=== PATIENT | male | born 1960 | race Caucasian/White ===

== ENCOUNTER 2019-12-27 14:42 | Outpatient (CLI) | payer BC, SELFPAY ==
--- NOTE | ~2019-12-27 | XR_ITS ---
XR chest 2V 12/27/2019 14:56 Indication: Weakness and shortness of breath. Procedure: 2 view chest Comparison: No prior studies for comparison. Findings: The there is a focal infiltrate of the left upper lung. Heart size normal. No edema, pleura l effusion or pneumothorax. Scattered calcified granulomas. Impression: 1: Focal infiltrate left upper lung which may represent atelectasis/scarring or developing pneumonia. Reviewed, dictated and finalized at location A. Impression: 1: Focal infiltrate left upper lung which may represent atelectasis/scarring or developing pneumonia.
[2019-12-27 15:34] LABS: Basophils Absolute Auto 0.1 K/mm3 (0.0-0.1); Basophils Percent Auto 0.6 % (0.2-1.2); Eosinophils Absolute Auto 0.2 K/mm3 (0-0.3); Eosinophils Percent Auto 2.3 % (0-4.4); Hematocrit 46.5 % (42.0-52.0); Hemoglobin 15.9 g/dL (14.0-18.0); Immature Granulocyte Absolute 0.04 K/mm3 (0.00-0.031); Immature Granulocyte Percent A 0.5 % (0-0.5); Lymphocytes Absolute Auto 2.09 K/mm3 (0.9-3.2); Lymphocytes Percent Auto 24.1 % (18.3-44.2); Mean Corpuscular HGB Conc 34.2 g/dl (32-36); Mean Corpuscular Hemoglobin 30.3 pg (26-34); Mean Corpuscular Volume 88.7 fl (80-100); Mean Platelet Volume 11.4 fl (7.4-10.4); Monocytes Absolute Auto 0.5 K/mm3 (0.1-0.6); Monocytes Percent Auto 5.4 % (2.6-8.5); Neutrophils Absolute Auto 5.8 K/mm3 (1.3-6.7); Neutrophils Percent Auto 67.1 % (45.5-73.1); Platelet Count Result 194 k/mm3 (150-375); Red Blood Count 5.24 M/mm3 (4.6-6.20); Red Cell Distribution Width 13.2 % (11.5-14.5); White Blood Count 8.7 K/mm3 (4.5-10.0)
[2019-12-27 15:45] LABS: Alanine Aminotransferase 45 U/L (4-50); Albumin Level 4.7 g/dL (3.5-5.1); Alkaline Phosphatase 76 U/L (38-126); Aspartate Amino Transferase 39 U/L (17-59); Bilirubin,Total 0.6 mg/dL (0.2-1.3); Blood Urea Nitrogen 13 mg/dL (9-20); Calcium 9.7 mg/dL (8.4-10.2); Carbon Dioxide 27 mmol/L (22-30); Chloride 102 mmol/L (98-107); Estimated Glomerular Filt Rate 56; Glucose 98 mg/dL (75-110); Potassium 4.3 mmol/L (3.4-5.0); Sodium 138 mmol/L (137-145)
[2019-12-27 16:11] LABS: Erythrocyte Sedimentation Rate 1 mm/hr (0-20)
[2019-12-30 14:22] LABS: Reference Lab Test Result Positive
== END 2019-12-27 14:43 | disposition home or self-care (01) ==
PROVIDERS: PCP Family Medicine; Visit Provider Family Medicine
DX: R53.1 Weakness (principal); R06.02 Shortness of breath; R91.8 Other nonspecific abnormal finding of lung field
CPT/HCPCS: 36415; 71046; 80053; 85025; 85652; 86769

== ENCOUNTER 2020-01-03 14:54 | Outpatient (CLI) | payer BC, SELFPAY | END 2020-01-03 14:55 | disposition home or self-care (01) | PROVIDERS: PCP Family Medicine; Visit Provider Internal Medicine Cardiovascular Disease | DX: I48.91 Unspecified atrial fibrillation (principal) | CPT/HCPCS: 93225; 93226 ==

== ENCOUNTER 2020-02-05 08:31 | Outpatient (CLI) | payer BC, SELFPAY ==
--- NOTE | 2020-02-05 08:49 | EST_ITS ---
Patient Info Name: Jigar Law Age: 59 years : 1960 Gender: Male Ht: 72 in Wt: 212 lbs BSA: 2.23 m2 Exam Date: 02/05/2020 10:47 AM Exam Location: [facility] Stress Patient Status: Outpatient Admit Date: 02/05/2020 Staff Ordering Physician: Partha Sosa DO Attending Provider: Partha Sosa DO Exercise Technologist: Mitchell Hurtado RDCS, RT Exercise Physician: Partha Sosa DO Exam Type: CA stress test treadmill Study Info An exercise stress test was performed. Summary 1. 1. Negative Manny exercise stress test for ischemic ST changes by ECG criteria. 2. 2. Good functional capacity, achieving 12 METs of workload. 3. 3. Baseline hypertension. 4. 4. Appropriate HR response to exercise. 5. 5. Appropriate HR recovery at 1 minute post exercise. 6. 6. No imaging with stress testing. 7. 7. Patient informed of the above results. Protocol: Manny Stress ECG Details Stage: REST Duration (min): 0 min : 56 sec Speed (mph): 0.0 Grade (%): 0 HR (bpm): 61 SBP (mmHg): 144 DBP (mmHg): 92 METS: --- Stage: REST Duration (min): 6 min : 21 sec Speed (mph): 0.0 Grade (%): 0 HR (bpm): 64 SBP (mmHg): 144 DBP (mmHg): 92 METS: --- Stage: STAGE 1 Duration (min): 1 min : 0 sec Speed (mph): 1.7 Grade (%): 10 HR (bpm): 82 SBP (mmHg): 144 DBP (mmHg): 92 METS: --- Stage: STAGE 1 Duration (min): 2 min : 0 sec Speed (mph): 1.7 Grade (%): 10 HR (bpm): 85 SBP (mmHg): 144 DBP (mmHg): 92 METS: --- Stage: STAGE 1 Duration (min): 3 min : 0 sec Speed (mph): 1.7 Grade (%): 10 HR (bpm): 88 SBP (mmHg): 175 DBP (mmHg): 96 METS: --- Stage: STAGE 2 Duration (min): 1 min : 0 sec Speed (mph): 2.5 Grade (%): 12 HR (bpm): 95 SBP (mmHg): 175 DBP (mmHg): 96 METS: --- Stage: STAGE 2 Duration (min): 2 min : 0 sec Speed (mph): 2.5 Grade (%): 12 HR (bpm): 97 SBP (mmHg): 174 DBP (mmHg): 97 METS: --- Stage: STAGE 2 Duration (min): 3 min : 0 sec Speed (mph): 2.5 Grade (%): 12 HR (bpm): 101 SBP (mmHg): 174 DBP (mmHg): 97 METS: --- Stage: STAGE 3 Duration (min): 1 min : 0 sec Speed (mph): 3.4 Grade (%): 14 HR (bpm): 108 SBP (mmHg): 186 DBP (mmHg): 96 METS: --- Stage: STAGE 3 Duration (min): 2 min : 0 sec Speed (mph): 3.4 Grade (%): 14 HR (bpm): 115 SBP (mmHg): 186 DBP (mmHg): 96 METS: --- Stage: STAGE 3 Duration (min): 3 min : 0 sec Speed (mph): 3.4 Grade (%): 14 HR (bpm): 120 SBP (mmHg): 189 DBP (mmHg): 86 METS: --- Stage: STAGE 4 Duration (min): 1 min : 0 sec Speed (mph): 4.2 Grade (%): 16 HR (bpm): 141 SBP (mmHg): 189 DBP (mmHg): 86 METS: --- Stage: STAGE 4 Duration (min): 1 min : 7 sec Speed (mph): 4.2 Grade (%): 16 HR (
--- NOTE | 2020-02-05 08:49 | ECHO_ITS ---
Patient Info Name: Jigar Law Age: 59 years : 1960 Gender: Male Ht: 72 in Wt: 212 lbs BSA: 2.23 m2 HR: 59 bpm BP: 138 / 85 mmHg Technical Quality: Good Exam Date: 02/05/2020 9:09 AM Exam Location: [facility] Patient Status: Outpatient Admit Date: 02/05/2020 Staff Ordering Physician: Partha Sosa DO Director Ship: Mae Torres RDCS Attending Provider: Partha Sosa DO Referring Physician: Ian RICHEY; Exam Type: CA echo doppler color flow Study Info Indications - hx/o afib sob Complete two-dimensional, color flow and Doppler transthoracic echocardiogram is performed. Summary 1. Left ventricular chamber dimension is normal. 2. Ventricular septum is sigmoid shaped. No LVOT obstruction. 3. Left ventricular systolic function is normal, estimated at 65-70%. 4. The left ventricular diastolic function is grade II diastolic dysfunction. 5. E/e' 10 is mildly elevated. 6. Left atrial chamber dimension is mild-moderately enlarged. 7. Moderate systolic anterior motion of mitral valve leaflets. 8. There is trace mitral valve regurgitation. 9. There is mild tricuspid valve regurgitation. 10. No pulmonary hypertension, estimated pulmonary arterial systolic pressure is 25 mmHg. 11. There is trace pulmonic regurgitation. Left Ventricle E/e' 10 is mildly elevated. Ventricular septum is sigmoid shaped. No LVOT obstruction. Left ventricular chamber dimension is normal. Left ventricular systolic function is normal, estimated at 65-70%. The left ventricular diastolic function is grade II diastolic dysfunction. Right Ventricle Right ventricular chamber dimension is normal. Right ventricular systolic function is normal. Left Atria Left atrial chamber dimension is mild-moderately enlarged. Right Atria Right atrial chamber dimension is normal. Aortic Valve The aortic valve is trileaflet. There is no aortic valve stenosis. There is no aortic valve regurgitation. Pulmonic Valve There is trace pulmonic regurgitation. Mitral Valve Moderate systolic anterior motion of mitral valve leaflets. There is no mitral valve stenosis. There is trace mitral valve regurgitation. Tricuspid Valve There is mild tricuspid valve regurgitation. No pulmonary hypertension, estimated pulmonary arterial systolic pressure is 25 mmHg. Pericardium/Pleural There is no pericardial effusion. Inferior Vena Cava Normal inferior vena cava with >50% collapse upon inspiration consistent with normal right atrial pressure, 5 mmHg. Aorta The aortic root size at the sinus of Valsalva is normal. Left Ventricular Outflow Tract Name Value Normal LVOT 2D LVOT Diameter 2.1 cm LVOT Doppler LVOT Peak Gradient 6 mmHg LVOT Mean Gradient 4 mmHg LVOT VTI 28 cm LVOT VTI/AV VTI Ratio 0.8 LVOT Stroke Volume 93 ml LVOT CO 19.2 l/min LVOT CI 8.6 l/min/m2 Pulmonic Valve
== END 2020-02-05 08:32 | disposition home or self-care (01) ==
LOC: ANHCARD 08:32
PROVIDERS: PCP Family Medicine; Visit Provider Internal Medicine Cardiovascular Disease
DX: R06.02 Shortness of breath (principal); I10 Essential (primary) hypertension; I34.0 Nonrheumatic mitral (valve) insufficiency; I36.1 Nonrheumatic tricuspid (valve) insufficiency
CPT/HCPCS: 93017; 93306

== ENCOUNTER 2020-03-12 16:27 | Outpatient (CLI) | payer BC, SELFPAY ==
--- NOTE | ~2020-03-12 | XR_ITS ---
EXAMINATION: XR chest 2V DATE: 03/12/2020 16:47 INDICATION: Shortness of breath. Cough. TECHNIQUE: Frontal and lateral views of the chest were obtained. COMPARISON: Chest 2 views 12/27/2019, CT abdomen and pelvis 10/04/2018 FINDINGS: There is mild atelectasis in the lower lung zones. Calcified pulmonary nodules are consiste nt with old granulomatous disease. No pleural effusion or pneumothorax. The heart size is normal. IMPRESSION: 1. Mild atelectasis in the lower lung zones. Reviewed, dictated and finalized at location A.
== END 2020-03-12 16:28 | disposition home or self-care (01) ==
PROVIDERS: PCP Family Medicine; Visit Provider Family Medicine
DX: R06.02 Shortness of breath (principal); R91.8 Other nonspecific abnormal finding of lung field
CPT/HCPCS: 71046

== ENCOUNTER 2020-03-27 09:40 | Outpatient (CLI) | payer BC, SELFPAY ==
--- NOTE | 2020-03-31 07:08 | SLEEP_ITS ---
Home Sleep Test DATE OF STUDY: 03/27/2020 ORDERING PHYSICIAN: Partha Sosa D.O. REASON FOR THIS STUDY: Hypersomnolence. HISTORY: The patient is a 59-year-old man, 6 feet tall, 212 pounds with a body mass index of 28.7. He has complaints of fragmented sleep, palpitations during sleep and falling asleep during the daytime. This has been going on for several years. He has difficulty falling asleep and he wakes up several times during the night. He has tried anxiety medications. He frequently wakes up feeling short of breath, frequently wakes up with heartburn, belching or coughing. He occasionally wakes up snoring, rarely is snoring loud enough that others complain about it. He occasionally has trouble sleeping with a cold, occasionally gasps for breath at night, but has not been told by others that he has apnea. He occasionally sweats excessively at night. He frequently notices his heart pounding or beating irregularly at night. He frequently falls asleep during the day, never involuntarily, never while driving, never during physical effort and never has loss of muscle tone with strong emotion. He rarely has daytime difficulties due to excessive sleepiness. He does not feel paralyzed on waking or falling asleep. He rarely has vivid dreamlike scenes upon awakening or falling asleep. He is rarely afraid to go to sleep. He rarely has nightmares. He frequently remembers his dreams. He occasionally has racing thoughts, rarely feels sad or depressed. He frequently has anxiety. He occasionally has muscular tension. He rarely notices parts of his body jerking and he rarely kicks at night. He does not have crawly achy feelings in the legs and does not have leg pain at night. He does not have morning jaw pain or grind his teeth at night. He is not bothered by pain during the day or wakened by pain at night. He does not have stiffness in the morning with sore achy muscles or neck pain. He has palpitations, memory problems, insomnia, panic, fatigue, takes antacids regularly, goes to bed at 10:00 p.m., taking 45 minutes to fall asleep, waking 4 times at night for 10 minutes to go to the bathroom and will try to go back to sleep. He has a meditation NESTOR that he uses. He wakes in the morning at 05:00 a.m. He does watch TV before falling asleep. He takes naps. A short nap may be refreshing. He is usually drowsy in the morning for an hour or longer. He feels better in the morning than other times a day. MEDICAL COMORBIDITIES: Atrial fibrillation, anxiety, GERD, hypertension, seasonal allergies. MEDICATIONS: 1. Buspirone 15 mg b.i.d. 2. Benicar 40 mg a day. 3. Clonazepam 1 mg b.i.d. 4. Nexium 20 mg a day. 5. Zoloft 50 mg a day. HABITS: Never smoked tobacco. Caffeine, 2 beverages a day. Alcohol 5 per week. No recreational drugs. DESCRIPTION OF THE STUDY: On the [place] Sleepiness Scale, the score is 9. This was conducted as an unattended type 3 portable home sleep test with 4 channel monitoring including respiratory effort channel, snoring channel, oxygen saturation channel, and heart rate channel. This study was scored using [facility] guidelines. Duration was 8 hours 31 minutes. The apnea-hypopnea index was 2.3. Oxygen desaturation index is 1.1. The patient had 12 apneas. Seven apneas or 58% were obstructive, 5 apneas or 42% were centrals. He had 8 hypopneas, 9 snoring events and no time was spent below 88%. He did desaturate 9 times. Lowest saturation was 88%. Heart rate ranged between 48 and 104. IMPRESSION: 1. This home sleep test does not show evidence of significant sleep-disordered breathing. The patient's apnea-hypopnea index is 2.3. He did have spikes in heart rate during the night that suggest adrenergic stimulation. Frequently
== END 2020-03-27 09:41 | disposition home or self-care (01) ==
LOC: ANHCSM 09:41
PROVIDERS: PCP Family Medicine; Visit Provider Internal Medicine Cardiovascular Disease
DX: G47.10 Hypersomnia, unspecified (principal); Z68.28 Body mass index [BMI] 28.0-28.9, adult
CPT/HCPCS: 95806

== ENCOUNTER 2020-09-02 06:54 | Outpatient (NON) | payer BC, SELFPAY ==
[2020-09-02 17:42] LABS: SARS-CoV-2 RNA PCR Negative
== END 2020-09-02 06:55 ==
LOC: ANHCOVIDDT 06:54
PROVIDERS: PCP Family Medicine; Visit Provider Physician Assistant
DX: R05 Cough (principal); Z20.822 Contact with and (suspected) exposure to COVID-19
CPT/HCPCS: C9803; U0003

== ENCOUNTER → 2020-10-19 12:38 | Outpatient (CLI) | payer BC, SELFPAY ==
--- NOTE | ~2020-10-19 | XR_ITS ---
EXAMINATION: XR chest 2V DATE: 10/19/2020 13:05 INDICATION: Unspecified acute lower respiratory infection. TECHNIQUE: Frontal and lateral views of the chest were obtained. COMPARISON: Chest 2 views 03/12/2020, CT abdomen and pelvis 10/04/2018 FINDINGS: Calcified pulmonary nodules are consistent with old granulomatous disease. No pleural effus ion or pneumothorax. The heart size is normal. IMPRESSION: 1. No acute cardiopulmonary disease. Reviewed, dictated and finalized at location A. COMMUNICATIONS ENGINEER
== END ==
PROVIDERS: PCP Family Medicine; Visit Provider Physician Assistant
DX: J22 Unspecified acute lower respiratory infection (principal)
CPT/HCPCS: 71046

== ENCOUNTER → 2020-10-22 11:53 | Outpatient (CLI) | payer BC, SELFPAY ==
[2020-10-23 22:51] LABS: SARS-CoV-2 RNA PCR Negative
== END ==
PROVIDERS: PCP Family Medicine; Visit Provider Physician Assistant
DX: Z20.822 Contact with and (suspected) exposure to COVID-19 (principal); R05 Cough
CPT/HCPCS: C9803; U0003; U0005

== ENCOUNTER 2020-10-24 06:49 | Emergency (ER) | payer BC, SELFPAY ==
--- NOTE | ~2020-10-24 | CT_ITS ---
EXAMINATION: CT abdomen pelvis w con DATE: 10/24/2020 09:15 INDICATION: Epigastric abdominal pain TECHNIQUE: Computed tomography (CT) of the abdomen and pelvis was performed without intravenous contr ast. Automated exposure control and iterative reconstruction technique were employed. Exam dose: 935 .28 mGy-cm total exam DLP. COMPARISON: October 04, 2018 CT abdomen pelvis 12/14/2018 upper gastrointestinal series with esophagram FINDINGS: There is mild discoid atelectasis or scarring at the lung bases. Normal heart size. No pericardial or pleural effusion. There is minimal pericholecystic fat stranding. There is borderline thickening of the gallbladder wal l. There is heterogeneous density of the gallbladder contents. Gallbladder ultrasound examination is recommended for further evaluation of possible cholelithiasis and even possible acute cholecystitis. No hepatic space-occupying mass lesion. No bile duct or pancreatic duct dilatation. No pancreatic mas s lesion or calcification. Normal splenic size. Normal morphology of the adrenal glands. There is an 8 mm right renal cyst. 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 No other renal space occupying mass lesio n is noted. No urinary tract calculus or hydroureteronephrosis. Normal caliber of the abdominal aorta. No intraperitoneal or retroperitoneal or pelvic mass lesion or adenopathy or ascites. Small sliding hiatal hernia. Normal appendix. There are nondilated fluid containing small bowel segments which may represent mild adynamic ileus or enteritis. No bowel obstruction, bowel wall thickening, pneumatosis or intraperitoneal free air. The re is minimal diverticulosis of the left colon; no CT evidence of diverticulitis. Prostate enlargement and calcifications. The urinary bladder is unremarkable. IMPRESSION: Heterogeneous density of the gallbladder contents, borderline gallbladder wall thickenin g and mild pericholecystic fat stranding. Gallbladder ultrasound examination is recommended. Acute ch olecystitis should be considered. Small sliding hiatal hernia Minimal left colon diverticulosis; no CT evidence of diverticulitis Reviewed, dictated and finalized at Location A. Reviewed, dictated and finalized at location A. STRAIGHTENER IMPRESSION: Heterogeneous density of the gallbladder contents, borderline gall bladder wall thickening and mild pericholecystic fat stranding. Gallbladder ult rasound examination is recommended. Acute cholecystitis should be considered. Small sliding hiatal hernia Minimal left colon diverticulosis; no CT evidence of diverticulitis
--- NOTE | ~2020-10-24 | US_ITS ---
US abdomen limited DATE: 10/24/2020 10:11 INDICATION: Upper abdominal pain TECHNIQUE: Real-time imaging of liver, pancreas, gallbladder areas COMPARISON: October 24, 2020 CT abdomen pelvis FINDINGS: No hepatic or pancreatic space-occupying mass lesion is evident. Normal hepatopedal portal venous flow direction. Intraluminal filling defects of the gallbladder with shadowing, consistent with cholelithiasis. Gallb ladder wall thickening, measuring up to 3 mm. Common bile duct measures 3.3 mm, normal. The technologist reports negative sonographic Hurtado's sign is not reliable given the fact the patien t is reportedly on pain medication. IMPRESSION: Cholelithiasis, mild gallbladder wall thickening Reviewed, dictated and finalized at Location A. Reviewed, dictated and finalized at location A. OPERATIONS DIRECTOR
[2020-10-24 06:52] VITALS: BP 178/109; PULSE 72; RESP 16; TEMP 36.7; O2SAT 100
[2020-10-24 07:10] LABS: Basophils Absolute Auto 0.1 K/mm3 (0.0-0.1); Basophils Percent Auto 0.6 % (0.2-1.2); Eosinophils Absolute Auto 0.2 K/mm3 (0-0.3); Eosinophils Percent Auto 2.5 % (0-4.4); Hematocrit 43.8 % (42.0-52.0); Hemoglobin 15.4 g/dL (14.0-18.0); Immature Granulocyte Absolute 0.04 K/mm3 (0.00-0.031); Immature Granulocyte Percent A 0.5 % (0-0.5); Lymphocytes Absolute Auto 2.46 K/mm3 (0.9-3.2); Lymphocytes Percent Auto 28.3 % (18.3-44.2); Mean Corpuscular HGB Conc 35.2 g/dl (32-36); Mean Corpuscular Volume 90.9 fl (80-100); Mean Platelet Volume 11.5 fl (7.4-10.4); Monocytes Absolute Auto 0.6 K/mm3 (0.1-0.6); Monocytes Percent Auto 6.4 % (2.6-8.5); Neutrophils Absolute Auto 5.4 K/mm3 (1.3-6.7); Neutrophils Percent Auto 61.7 % (45.5-73.1); Platelet Count Result 223 k/mm3 (150-375); Red Blood Count 4.82 M/mm3 (4.6-6.20); Red Cell Distribution Width 12.9 % (11.5-14.5); White Blood Count 8.7 K/mm3 (4.5-10.0)
[2020-10-24 07:23] LABS: Alanine Aminotransferase 45 U/L (4-50); Albumin Level 4.1 g/dL (3.5-5.1); Alkaline Phosphatase 72 U/L (38-126); Anion Gap 5 mmol/L (8-16); Aspartate Amino Transferase 44 U/L (17-59); Bilirubin,Total 0.4 mg/dL (0.2-1.3); Blood Urea Nitrogen 21 mg/dL (9-20); Calcium 8.9 mg/dL (8.4-10.2); Carbon Dioxide 31 mmol/L (22-30); Chloride 104 mmol/L (98-107); Estimated CRCL calculation 70 ml/min; Estimated Glomerular Filt Rate > 60; Glucose 109 mg/dL (75-110); Lipase 111 U/L (23-300); Potassium 4.2 mmol/L (3.4-5.0); Sodium 140 mmol/L (137-145)
--- NOTE | 2020-10-24 07:23 | ED.ABDPAIN ---
HPI - Abdominal Pain General Chief Complaint: Abdominal Pain Stated Complaint: abd pain with distended abd Time Seen by Provider: 10/24/20 07:03 History of Present Illness HPI narrative: 60 yo male w/ h/o hiatal hernia, GERD. Severe epigastric pain since last night. Started after eating almonds. Feels like cramping. constant with paroxysms. briefly exacerbating by drinking fluids. Associated with mild nausea. Feels similar to GERD, but worse. He reports that he has had URI symptoms recently. Tested negative for COVID-19. Related Data Home Medications Medication Instructions Recorded Confirmed Adults Multivitamin 1 tablet PO DAILY 08/01/19 10/27/20 buspirone 15 mg PO BID 08/01/19 10/27/20 flaxseed oil 1,000 mg PO DAILY 08/01/19 10/27/20 ascorbate calcium (vitamin C) 500 500 mg PO DAILY 09/13/19 10/27/20 mg capsule metoprolol succinate 50 mg 25 mg PO DAILY tablet 07/10/20 10/27/20 tablet,extended release 24 hr Allergies Allergy/AdvReac Type Severity Reaction Status Date / Time fish derived Allergy Severe DIFFICULTY Verified 10/26/20 13:38 BREATHING, THROAT SWELLING shellfish derived Allergy Severe THROAT Verified 10/26/20 13:38 SWELLING levofloxacin Allergy Unknown Anaphylactic Verified 10/26/20 13:38 Shock Penicillins Allergy Unknown THROAT Verified 10/26/20 13:38 SWELLING Review of Systems Review of Systems: All systems reviewed & are unremarkable except as noted in HPI and below Constitutional: Constitutional: Denies chills and Denies fever(s) Eyes: Eyes: Reports no additional eye complaints ENT: Denies dysphagia Cardiovascular: Cardiovascular: Denies chest pain Respiratory: Respiratory: Reports cough and Denies dyspnea Gastrointestinal: Gastrointestinal: Reports abdominal pain, Denies constipation, Denies diarrhea, Reports nausea and Denies vomiting Genitourinary: Genitourinary: Reports no additional male genitourinary complaints Musculoskeletal: Musculoskeletal: Reports no additional musculoskeletal complaints Integumentary/Breasts: Skin/Breast: Reports system reviewed and no additional complaints, except as docu Neurologic: Denies dizziness and Denies weakness PMFSH Past Medical History Medical History Anxiety Atrial fibrillation paroxysmal Depression Encounter for screening colonoscopy GERD (gastroesophageal reflux disease) Hypertension Nonerosive esophageal reflux disease Normal colonoscopy 2010 Surgical History Surgical History Partial tear of right rotator cuff high grade bursal side. Status post arthroscopy of shoulder (08/09/19) Family History Family History Father Hypertension Family history of malignant neoplasm of esophagus Patient's father is Mother Patient's mother is , Onset Age: 86 Heart disease Social History Social History Social History: Smoking status: Current every day smoker Tobacco type: cigars Second hand tobacco smoke exposure: No Alcohol intake: current Drinks per week: 3 Substance use: never Substance use type: does not use Additional occupation/education comments: What Job [employer] Gender identity (if verbalized by the patient): Male Exam Const: General: no acute distress and alert Orientation/consciousness: patient oriented x3 HENMT: Head: normal to inspection Neck: Neck: normal visual inspection Chest: Chest palpation & inspection: no tenderness Resp: Effort & Inspection: normal respiratory effort Auscultation: clear to auscultation bilaterally, no rales, no rhonchi and no wheezes Cardio: Jugular venous distension: no JVD Rate: regular rate Rhythm: regular rhythm Heart sounds: no murmurs GI: Inspection: non-distended
[2020-10-24 07:29] LABS: Add Urine Microscopic? NO; Appearance Urine Clear (Clear); Bilirubin Urine Negative (Negative); Blood Urine Negative (Negative); Color Urine Yellow (Yellow); Glucose Urine UA Negative (Negative); Ketones Urine Negative (Negative); Leukocyte Esterase Ur Negative LEU/UL (Negative); Nitrate Urine Negative (Negative); Protein Urine Negative (Negative); Specific Grav Ur 1.026 (1.001-1.035); Urobilinogen Urine Negative mg/dL (<2.0)
[2020-10-24] MEDS: PANTOPRAZOLE SODIUM IV 40 MG VIAL IV PUSH (07:32)
[2020-10-24 07:34] VITALS: BP 180/99; PULSE 70; RESP 20; O2SAT 100
[2020-10-24] MEDS: MORPHINE SULFATE (*CRX) 4 MG/ML INJ IV PUSH (08:35)
[2020-10-24] MEDS: METOCLOPRAMIDE HCL INJ 10 MG/2 ML VIAL IV PUSH (08:35)
[2020-10-24 08:37] VITALS: BP 161/96; PULSE 62; RESP 20; O2SAT 99
[2020-10-24 10:17] VITALS: BP 142/83; PULSE 63; RESP 20; O2SAT 98
[2020-10-24 12:01] VITALS: BP 142/88; PULSE 68; RESP 20; O2SAT 98
== END 2020-10-24 12:05 | disposition home or self-care (01) ==
PROVIDERS: Emergency Medicine; Emergency Provider Emergency Medicine; PCP Family Medicine
DX: K81.0 Acute cholecystitis (principal); I48.91 Unspecified atrial fibrillation; I10 Essential (primary) hypertension; F41.9 Anxiety disorder, unspecified; K21.9 Gastro-esophageal reflux disease without esophagitis; F32.9 Major depressive disorder, single episode, unspecified; K44.9 Diaphragmatic hernia without obstruction or gangrene
CPT/HCPCS: 36415; 74177; 76705; 80053; 81003; 83690; 85025; 96374; 96375; 99284; A9270; C9113; J2270; J2765; Q9967

== ENCOUNTER → 2020-10-30 02:05 | Outpatient (CLI) | payer BC, SELFPAY ==
[2020-10-31 08:28] LABS: SARS-CoV-2 RNA PCR Negative
== END ==
PROVIDERS: PCP Family Medicine; Visit Provider Surgery
DX: Z01.812 Encounter for preprocedural laboratory examination (principal); Z20.822 Contact with and (suspected) exposure to COVID-19
CPT/HCPCS: C9803; U0003; U0005

== ENCOUNTER 2020-10-30 09:01 | Outpatient (CLI) | payer BC, SELFPAY ==
[2020-10-30 09:29] LABS: Amylase 75 U/L (30-110)
== END 2020-10-30 09:02 | disposition home or self-care (01) ==
PROVIDERS: PCP Family Medicine; Visit Provider Surgery
DX: K80.10 Calculus of gallbladder with chronic cholecystitis without obstruction (principal); Z01.818 Encounter for other preprocedural examination
CPT/HCPCS: 36415; 82150; 86850; 86900; 86901

== ENCOUNTER 2020-11-02 01:07 | Day surgery (SDC) | payer BC, SELFPAY ==
[2020-10-27 18:35] VITALS: BMI 29.5
[2020-11-02] VITALS (7 sets, daily range): BP systolic 103–147; BP diastolic 65–92; PULSE 63–81; RESP 14–20; TEMP 36.4–36.7; O2SAT 97–100
--- NOTE | 2020-11-02 08:25 | WPDANESEPPF ---
Anes - Initial Pre Proc Eval Procedure: Operation Date: 11/02/20 09:30 Proposed Procedures p Laparoscopic Cholecystectomy - Lizeth Jaeger MD Date/Time: 11/02/20 08:25 Surgeon: Lizeth Jaeger MD Pre Op Diagnosis: Cholecystitis Patient Data Age: 60 Gender: M Height: 1.83 m Weight: 98.63 kg Allergies Allergy/AdvReac Type Severity Reaction Status Date / Time fish derived Allergy Severe ANAPHYLAXIS; Verified 11/02/20 08:52 DIFFICULTY BREATHING, THROAT SWELLING levofloxacin Allergy Severe Anaphylaxis Verified 11/02/20 08:52 Penicillins Allergy Severe Anaphylaxis Verified 11/02/20 08:52 shellfish derived Allergy Severe ANAPHYLAXIS; Verified 11/02/20 08:52 THROAT SWELLING Home Medications Medication Instructions Recorded Confirmed Type Adults Multivitamin 1 tablet PO DAILY 08/01/19 11/02/20 History buspirone 15 mg PO BID 08/01/19 11/02/20 History flaxseed oil 1,000 mg PO DAILY 08/01/19 11/02/20 History ascorbate calcium (vitamin C) 500 500 mg PO DAILY 09/13/19 11/02/20 History mg capsule metoprolol succinate 50 mg 25 mg PO HS tablet 07/10/20 11/02/20 History tablet,extended release 24 hr olmesartan 40 mg tablet 40 mg PO DAILY #90 tablet 07/21/20 11/02/20 Rx hydrocodone-acetaminophen 1 tablet PO Q6H PRN #10 tablet 10/24/20 11/02/20 Rx sulfamethoxazole-trimethoprim 1 tablet PO Q12H #14 tablet 10/24/20 11/02/20 Rx [Bactrim DS] clonazepam 1 mg PO BID 10/27/20 11/02/20 History pantoprazole 40 mg PO BID 10/27/20 11/02/20 History Patient hx anesthesia problems: none Family hx anesthesia problems: none PMFSH Past Medical History Medical History (Updated 11/02/20 @ 08:25 by Nader Moreno MD) Anxiety Atrial fibrillation paroxysmal BMI 29.0-29.9,adult Depression Encounter for screening colonoscopy GERD (gastroesophageal reflux disease) Hypertension Nonerosive esophageal reflux disease Normal colonoscopy 2010 Overweight Surgical History Surgical History Partial tear of right rotator cuff high grade bursal side. 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 Questions were solicited and answers provided to the satisfaction of the patient/family/POA.
--- NOTE | 2020-11-02 08:29 | WPDHPUPDATE1 ---
History and Physical Update Update Date/Time: 11/02/20 08:29 History and Physical has been reviewed, including an updated exam of the patient. There are NO changes in the patient's condition. Risks, benefits, and alternatives have been discussed and questions answered. Patient agrees to proceed with procedure.
[2020-11-02] MEDS: LACTATED RINGERS 1,000 ML 30 ML IV CONT ×2 (09:15→11:46)
[2020-11-02] MEDS: ACETAMINOPHEN 500 MG TABLET 1000 MG PO (09:26)
[2020-11-02] MEDS: KETOROLAC 15 MG/ML VIAL (*BKC) IV PUSH (09:27)
[2020-11-02] MEDS: CLINDAMYCIN 900 MG/D5W 50 ML 900 MG/50 ML PIGGYBACK 50 MG IVPB (10:27)
[2020-11-02] MEDS: BUPIVACAINE/EPINEPHRINE 0.5% 30 ML VIAL INFILTRATE (11:01)
--- NOTE | 2020-11-02 11:32 | PM.PROC ---
Procedure Note - Detailed Date of procedure: 11/02/20 Pre-op diagnosis: Cholecystitis Post-op diagnosis: same Procedure performed: laparoscopic cholecystectomy Description of procedure: The patient was taken to the operating room placed in the supine position. After adequate induction of general anesthesia, the patient was prepped and draped in normal sterile fashion. A time-out was then performed to verify the patient's identity as well as the procedure being performed. I then made a 5 mm incision in the infraumbilical region. Through this, a Veress needle was placed into the peritoneal cavity and CO2 gas was then insufflated. After adequate pneumoperitoneum was achieved, the Veress needle was removed and a 5 mm trocar was placed through this incision. I then placed the laparoscoped through this trocar site and under direct visualization placed a further 12 mm subxiphoid port as well as 2 additional 5 mm ports in the right upper abdomen. The gallbladder was then identified and was noted to be moderately inflamed and covered by omentum. Using both blunt dissection and the electrocautery, I was able to dissect the omental adhesions off the gallbladder. I was then able to place a grasper at the dome of the gallbladder and this was retracted anterior and cephalad up over the liver. A 2nd retractor was then placed at the infundibulum and retracted laterally, this allowed visualization of the triangle of Calot. I then was able to visualize the cystic duct in its entirety from its proximal insertion into the gallbladder, to its distal junction with the common hepatic/common bile duct junction. At this point, I carefully skeletonized the proximal cystic duct with the [place] dissector. I then clipped and transected the proximal cystic duct. Next I visualized the cystic artery. Again the artery was skeletonized, clipped, and transected. I then used the Bovie cautery to take down the peritoneal attachments of the gallbladder off the liver bed. Once the gallbladder specimen was completely detached, an endo-pouch was placed through the 12 mm port site. I then placed the gallbladder specimen into the Endo pouch and removed the endo-pouch from the 12 mm port site. I did have to enlarge the incision slightly to allow extraction of the specimen. The specimen will now be sent to pathology for further review. I then copiously irrigated the right upper quadrant. Hemostasis was noted in the liver bed, the clips were noted to be in good position on both the cystic duct stump and the cystic artery stump. No other pathology was noted in the right upper quadrant. I then moved the laparoscope to the subxiphoid port. No iatrogenic injury or other pathology was noted in the lower abdomen. At this point, the abdomen was desufflated and all ports removed. The fascia of the 12 mm subxiphoid port was closed with a 0 Vicryl figure of 8 suture. All port sites were then closed with 4.O Monocryl subcuticular sutures. Dermabond was placed on each incision. The patient tolerated the procedure well, was extubated in the operating room postoperative and will be transferred to the recovery room in stable condition. Implants: none Anesthesia: GETA Surgeon: Lizeth Jaeger MD Estimated blood loss (mL): 10 Drains: No Packing: No Pathology: yes Complications: No immediate complications Condition: stable Disposition: PACU Findings: Cholecystitis with cholelithiasis
== END 2020-11-02 13:37 | disposition home or self-care (01) ==
PROVIDERS: PCP Family Medicine; Visit Provider Surgery
PROC: 0FT44ZZ Resection of Gallbladder, Percutaneous Endoscopic Approach (ICD-10-PCS; CPT 47562; principal; 2020-11-02 09:30)
DX: K80.10 Calculus of gallbladder with chronic cholecystitis without obstruction (principal); I48.0 Paroxysmal atrial fibrillation; I10 Essential (primary) hypertension; K21.9 Gastro-esophageal reflux disease without esophagitis; F41.8 Other specified anxiety disorders; F17.290 Nicotine dependence, other tobacco product, uncomplicated
CPT/HCPCS: 47562; 88304; A9270; J0330; J1100; J1885; J2250; J2370; J2405; J2704; J2710; J3010; J7030; J7120

== ENCOUNTER 2021-09-03 02:11 | Day surgery (SDC) | payer BC, SELFPAY ==
[2021-08-16 14:49] VITALS: BMI 27.1
--- NOTE | 2021-09-02 13:13 | PM.HPGS ---
History of Present Illness History of Present Illness Consent: Risks, benefits, and alternatives have been discussed and questions answered. Patient agrees to proceed with procedure. Chief complaint: neoplasm screening Narrative: Jigar Law is a 61 year old male referred for colon cancer screening. His last colonoscopy was 10 years ago Review of Systems Review of Systems: All systems reviewed & are unremarkable except as noted in HPI and below PMFSH Past Medical History Medical History Anxiety Atrial fibrillation paroxysmal BMI 29.0-29.9,adult Depression Encounter for screening colonoscopy GERD (gastroesophageal reflux disease) Hypertension Impacted cerumen of both ears Nonerosive esophageal reflux disease Normal colonoscopy 2010 Overweight Surgical History Surgical History Hx laparoscopic cholecystectomy 11/02/20 Partial tear of right rotator cuff high grade bursal side. 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 Gender identity (if verbalized by the patient): Male Sexual Orientation (if Verbalized by the Patient): Straight or Heterosexual Spiritual care concerns: No Meds Home Medications and Allergies Home Medications Medication Instructions Recorded Confirmed Type Adults Multivitamin 1 tablet PO DAILY 08/01/19 09/03/21 History buspirone 15 mg PO BID 08/01/19 09/03/21 History flaxseed oil 1,000 mg PO DAILY 08/01/19 09/03/21 History ascorbate calcium (vitamin C) 500 500 mg PO DAILY 09/13/19 09/03/21 History mg capsule clonazepam 1 mg PO BID 10/27/20 09/03/21 History albuterol sulfate 90 mcg/actuation See Rx Instructions .ROUTE 06/21/21 09/03/21 Rx aerosol inhaler .COMPLEX #17 g metoprolol succinate 50 mg 25 mg PO HS #90 tablet 07/06/21 09/03/21 Rx tablet,extended release 24 hr olmesartan 40 mg tablet 40 mg PO DAILY #90 tablet 07/09/21 09/03/21 Rx Nexium 20 mg BYMOUTH BID 08/16/21 09/03/21 History Allergies Allergy/AdvReac Type Severity Reaction Status Date / Time fish derived Allergy Severe ANAPHYLAXIS; Verified 09/03/21 09:35 DIFFICULTY BREATHING, THROAT SWELLING levofloxacin Allergy Severe Anaphylaxis Verified 09/03/21 09:35 Penicillins Allergy Severe Anaphylaxis Verified 09/03/21 09:35 shellfish derived Allergy Severe ANAPHYLAXIS; Verified 09/03/21 09:35 THROAT SWELLING Exam Resp: Auscultation: clear to auscultation bilaterally Cardio: Rate: regular rate Rhythm: regular rhythm GI: GI Palp: Yes Soft to palpation and No Tenderness to palpation present (GI) Assessment and Plan Assessment and plan (1) Colon cancer screening: Code(s): Z12.11 - Encounter for screening for malignant neoplasm of colon Status: Acute Assessment and Plan: Colonoscopy with possible biopsy or polypectomy or cautery or injection of substances.
--- NOTE | 2021-09-03 07:51 | WPDANESEPPF ---
Anes - Initial Pre Proc Eval Procedure: Operation Date: 09/03/21 10:30 Proposed Procedures p Screening Colonoscopy - Meng Nagy MD Date/Time: 09/03/21 07:51 Surgeon: Meng Nagy MD Pre Op Diagnosis: neoplasm screening Patient Data Age: 61 Gender: M Height: 1.83 m Weight: 91 kg Allergies Allergy/AdvReac Type Severity Reaction Status Date / Time fish derived Allergy Severe ANAPHYLAXIS; Verified 09/03/21 09:35 DIFFICULTY BREATHING, THROAT SWELLING levofloxacin Allergy Severe Anaphylaxis Verified 09/03/21 09:35 Penicillins Allergy Severe Anaphylaxis Verified 09/03/21 09:35 shellfish derived Allergy Severe ANAPHYLAXIS; Verified 09/03/21 09:35 THROAT SWELLING Home Medications Medication Instructions Recorded Confirmed Type Adults Multivitamin 1 tablet PO DAILY 08/01/19 08/16/21 History buspirone 15 mg PO BID 08/01/19 08/16/21 History flaxseed oil 1,000 mg PO DAILY 08/01/19 08/16/21 History ascorbate calcium (vitamin C) 500 500 mg PO DAILY 09/13/19 08/16/21 History mg capsule clonazepam 1 mg PO BID 10/27/20 08/16/21 History albuterol sulfate 90 mcg/actuation See Rx Instructions .ROUTE 06/21/21 08/16/21 Rx aerosol inhaler .COMPLEX #17 g metoprolol succinate 50 mg 25 mg PO HS #90 tablet 07/06/21 08/16/21 Rx tablet,extended release 24 hr olmesartan 40 mg tablet 40 mg PO DAILY #90 tablet 07/09/21 08/16/21 Rx Nexium 20 mg BYMOUTH BID 08/16/21 08/16/21 History Patient hx anesthesia problems: none Family hx anesthesia problems: none Results Review: All pre-operative results and documents have been reviewed as part of the pre-operative evaluation. [facility] Past Medical History Medical History Anxiety Atrial fibrillation paroxysmal BMI 29.0-29.9,adult Depression Encounter for screening colonoscopy GERD (gastroesophageal reflux disease) Hypertension Impacted cerumen of both ears Nonerosive esophageal reflux disease Normal colonoscopy 2010 Overweight Surgical History Surgical History Hx laparoscopic cholecystectomy 11/02/20 Partial tear of right rotator cuff high grade bursal side. 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[employer] Gender identity (if verbalized by the patient): Male Sexual Orientation (if Verbalized by the Patient): Straight or Heterosexual Spiritual care concerns: No Anes - Eval Final PreProcedure Day of Procedure 09/03/21 07:51 Patient weight: overweight Heart: regular rate and rhythm Lungs: clear to auscultation and normal air movement Airway: Mallampati scale class II Neurological: alert and oriented Last oral intake: >/= 8 hours ASA classification: III Emergent: no Anesthetic plan: proceed Anesthesia type and monitoring: general GIVS and standard monitoring Results Review: All pre-operative results and documents have been reviewed as part of the pre-operative evaluation. Informed Consent: The patient's anesthetic plan and its attendant risks and benefits were discussed with the patient/family/POA. Questions were solicited and answers provided to the satisfaction of the patient/family/POA.
[2021-09-03 09:36] VITALS: BP 124/84; PULSE 73; RESP 18; TEMP 36.3; O2SAT 97
[2021-09-03] MEDS: LACTATED RINGERS 1,000 ML 150 ML IV CONT (09:48)
[2021-09-03 10:41] VITALS: BP 117/80; PULSE 73; RESP 18; O2SAT 99
[2021-09-03 10:51] VITALS: BP 124/92; PULSE 69; RESP 20; O2SAT 95
== END 2021-09-03 11:09 | disposition home or self-care (01) ==
PROVIDERS: PCP Family Medicine; Visit Provider Internal Medicine Gastroenterology
PROC: 0DJD8ZZ Inspection of Lower Intestinal Tract, Via Natural or Artificial Opening Endoscopic (ICD-10-PCS; CPT 45378; principal; 2021-09-03 10:30)
DX: Z12.11 Encounter for screening for malignant neoplasm of colon (principal); K57.30 Diverticulosis of large intestine without perforation or abscess without bleeding; K63.5 Polyp of colon; K62.1 Rectal polyp; Z79.82 Long term (current) use of aspirin; F41.9 Anxiety disorder, unspecified; I48.0 Paroxysmal atrial fibrillation; F32.9 Major depressive disorder, single episode, unspecified; K21.9 Gastro-esophageal reflux disease without esophagitis; I10 Essential (primary) hypertension
CPT/HCPCS: 45380; 88305; J2704; J7120

== ENCOUNTER 2021-11-01 13:23 | Outpatient (CLI) | payer BC, SELFPAY ==
--- NOTE | 2021-11-01 13:36 | ECG_ITS ---
Measurements Intervals [place] Rate: 60 P: 46 PA: 171 QRS: 58 QRSD: 90 T: 65 QT: 432 QTc: 434 Interpretive Statements SINUS RHYTHM WITHIN NORMAL LIMITS COMPARED TO ECG 04/11/2019 19:20:23 NO SIGNIFICANT DIFFERENCE Electronically Signed On 11-01-2021 15:51:29 BRAKE OPERATOR HELPER by Tin Kelley M.D.
== END 2021-11-01 13:24 | disposition home or self-care (01) ==
PROVIDERS: PCP Family Medicine; Visit Provider Family Medicine
DX: R00.2 Palpitations (principal)
CPT/HCPCS: 93005

== ENCOUNTER 2021-11-11 13:33 | Outpatient (CLI) | payer BC, SELFPAY ==
--- NOTE | 2021-11-16 12:00 | WPDHOLTEREM ---
Holter/Event Monitor Holter/Event Monitor Date of procedure: 11/11/21 Holter/Event Procedure: 24 Hr Holter Monitor Indications: Palpitations Conclusion: 1. 24 hour holter monitor on 11/11/21. 2. Underlying rhythm is sinus rhythm. HR range 54-152 bpm; average HR 78 bpm. HR at 152 bpm was at 19:33. 3. There are 95 premature supraventricular complexes. No supraventricular tachycardia. 4. There are 2 premature ventricular complexes. No ventricular tachycardia. 5. No sinoatrial or atrioventricular blocks. No significant pauses greater than 2 seconds. 6. Patient reports symptoms of jaw pain, ectopic beats which demonstrate sinus rhythm, HR range 65-145 bpm.
== END 2021-11-11 13:34 | disposition home or self-care (01) ==
PROVIDERS: PCP Family Medicine; Visit Provider Internal Medicine Cardiovascular Disease
DX: R00.2 Palpitations (principal)
CPT/HCPCS: 93225; 93226

== ENCOUNTER 2022-11-26 22:57 | Emergency (ER) | payer OTHER, BC, SELFPAY ==
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
[2022-11-26 22:57] VITALS: BP 146/106; PULSE 92; RESP 18; TEMP 36.6; O2SAT 100
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
[2022-11-26 23:39] VITALS: PULSE 108; RESP 18
[2022-11-26 23:54] VITALS: PULSE 94; RESP 17; O2SAT 95
[2022-11-27] VITALS (31 sets, daily range): BP systolic 104–145; BP diastolic 59–111; PULSE 76–96; RESP 10–16; O2SAT 89–99
[2022-11-27] LABS: Basophils Percent Auto 0.5 % (0.2-1.2); Eosinophils Absolute Auto 0.1 K/mm3 (0-0.3); Eosinophils Percent Auto 1.7 % (0-4.4); Hematocrit 41.8 % (42.0-52.0); Hemoglobin 14.8 g/dL (14.0-18.0); Immature Granulocyte Absolute 0.04 K/mm3 (0.00-0.031); Immature Granulocyte Percent A 0.5 % (0-0.5); Lymphocytes Absolute Auto 2.52 K/mm3 (0.9-3.2); Lymphocytes Percent Auto 30.6 % (18.3-44.2); Mean Corpuscular HGB Conc 35.4 g/dl (32-36); Mean Corpuscular Hemoglobin 31.4 pg (26-34); Mean Corpuscular Volume 88.6 fl (80-100); Mean Platelet Volume 10.5 fl (7.4-10.4); Monocytes Absolute Auto 0.4 K/mm3 (0.1-0.6); Monocytes Percent Auto 4.9 % (2.6-8.5); Neutrophils Absolute Auto 5.1 K/mm3 (1.3-6.7); Neutrophils Percent Auto 61.8 % (45.5-73.1); Platelet Count Result 183 k/mm3 (150-375); Red Blood Count 4.72 M/mm3 (4.6-6.20); Red Cell Distribution Width 12.3 % (11.5-14.5); White Blood Count 8.2 K/mm3 (4.5-10.0)
[2022-11-27 00:10] LABS: Anion Gap 10 mmol/L (8-16); Blood Urea Nitrogen 11 mg/dL (9-20); Calcium 8.3 mg/dL (8.4-10.2); Carbon Dioxide 25 mmol/L (22-30); Chloride 100 mmol/L (98-107); Estimated CRCL calculation 95 ml/min; Estimated Glomerular Filt Rate > 60; Glucose 100 mg/dL (65-110); Potassium 3.3 mmol/L (3.4-5.0); Sodium 135 mmol/L (137-145)
== END 2022-11-27 05:59 | disposition home or self-care (01) ==
PROVIDERS: Emergency Provider Physician Assistant
DX: F10.129 Alcohol abuse with intoxication, unspecified (principal); I48.91 Unspecified atrial fibrillation; I10 Essential (primary) hypertension; V89.0XXA Person injured in unspecified motor-vehicle accident, nontraffic, initial encounter; Y92.89 Other specified places as the place of occurrence of the external cause
CPT/HCPCS: 36415; 70450; 71260; 72125; 74177; 80048; 85025; 99284; Q9967

== ENCOUNTER 2022-12-15 08:29 | Outpatient (CLI) | payer BC, SELFPAY ==
--- NOTE | ~2022-12-15 | US_ITS ---
EXAMINATION: US carotid duplex BI DATE: 12/15/2022 10:49 INDICATION: History of transient ischemic attack TECHNIQUE: Grayscale, color Doppler, and pulsed Doppler images of the cervical carotid arteries were obtained. The degree of vessel stenosis is placed in one of the following categories: normal, <50%, 5 0-69%, >=70% but less than near-occlusion, near-occlusion, or total occlusion. Note that percent sten osis relative to normal distal artery lumen diameter is indirectly measured from velocity measurement s as described by Herb, et al. Radiology 2003; 229:340-346. COMPARISON: None. FINDINGS: RIGHT: The right common carotid artery (CCA) peak systolic velocity (PSV) is 93.2 cm/s. The right internal c arotid artery (ICA) PSV is 56.6 cm/s. The right ICA end-diastolic velocity (EDV) is 23.8 cm/s. The ri t ICA/CCA PSV ratio is 0.6. Grayscale and color Doppler images yield an estimate of less than 50% d iameter reduction from plaque in the ICA. The external carotid artery (ECA) PSV is 57.9 cm/s. There i s antegrade flow in the right vertebral artery. LEFT: The left CCA PSV is 92.9 cm/s. The left ICA PSV is 61.1 cm/s. The left ICA EDV is 31.4 cm/s. The left ICA/CCA PSV ratio is 0.7. Grayscale and color Doppler images yield an estimate of less than 50% diam eter reduction from plaque in the ICA. The ECA PSV is 76.1 cm/s. There is antegrade flow in the left vertebral artery. IMPRESSION: 1. Less than 30% stenosis in the right internal carotid artery. 2. Less than 50% stenosis in the left internal carotid artery. Reviewed, dictated and finalized at Location A. Reviewed, dictated and finalized at location L.
--- NOTE | 2022-12-15 08:57 | ECHO_ITS ---
Patient Info Name: Jigar Law Age: 62 years : 1960 Gender: Male Ht: 72 in Wt: 218 lbs BSA: 2.26 m2 HR: 66 bpm BP: 137 / 97 mmHg Technical Quality: Fair Exam Date: 12/15/2022 9:04 AM Exam Location: [facility] Pul[facility] Patient Status: Outpatient Admit Date: 12/15/2022 Staff Ordering Physician: Marbella Wetzel [employer] R12 Developer: Anny Garcia RDCS Attending Provider: Marbella Wetzel Referring Physician: Damari DEL RIO; Exam Type: CA echo doppler color flow Study Info Indications R00.2 - Palpitations Complete two-dimensional, color flow and Doppler transthoracic echocardiogram is performed. Summary 1. Complete two-dimensional, color flow and Doppler transthoracic echocardiogram is performed. 2. Left ventricular chamber dimension is normal. 3. Left ventricular systolic function is normal, estimated at 65-70%. 4. The left ventricular diastolic function is grade II diastolic dysfunction. 5. E/e' 13 is mildly elevated. 6. Global longitudinal strain is normal at -17.6%. 7. There is trace tricuspid valve regurgitation. 8. No pulmonary hypertension, estimated pulmonary arterial systolic pressure is 26 mmHg. Left Ventricle E/e' 13 is mildly elevated. Global longitudinal strain is normal at -17.6%. Left ventricular chamber dimension is normal. Left ventricular systolic function is normal, estimated at 65-70%. The left ventricular diastolic function is grade II diastolic dysfunction. Right Ventricle Right ventricular systolic function is normal and with normal TAPSE 2.5 cm. Right ventricular chamber dimension is normal. Left Atria Left atrial chamber dimension is mildly enlarged. Right Atria Right atrial chamber dimension is normal. Aortic Valve The aortic valve is trileaflet. There is no aortic valve stenosis. There is no aortic valve regurgitation. Pulmonic Valve There is no pulmonic regurgitation. Mitral Valve There is no mitral valve stenosis. There is no mitral valve regurgitation. Tricuspid Valve There is trace tricuspid valve regurgitation. No pulmonary hypertension, estimated pulmonary arterial systolic pressure is 26 mmHg. Pericardium/Pleural There is no pericardial effusion. Inferior Vena Cava Normal inferior vena cava with >50% collapse upon inspiration consistent with normal right atrial pressure, 5 mmHg. Aorta The aortic root size at the sinus of Valsalva is normal. Left Ventricular Outflow Tract Name Value Normal LVOT 2D LVOT Diameter 2.0 cm LVOT Doppler LVOT Peak Gradient 8 mmHg LVOT Mean Gradient 5 mmHg LVOT VTI 33 cm LVOT VTI/AV VTI Ratio 1.0 LVOT Stroke Volume 105 ml LVOT CO 6.9 l/min LVOT CI 3.1 l/min/m2 Pulmonic Valve Name Value Normal RVOT Do
== END 2022-12-15 08:30 | disposition home or self-care (01) ==
LOC: ANHCARD 08:31
PROVIDERS: PCP Family Medicine; Visit Provider Physician Assistant Medical
DX: R00.2 Palpitations (principal); Z86.73 Personal history of transient ischemic attack (TIA), and cerebral infarction without residual deficits
CPT/HCPCS: 93306; 93880

== ENCOUNTER 2023-06-26 01:34 | Day surgery (SDC) | payer BC, SELFPAY ==
[2023-06-21 12:15] VITALS: BMI 30.5
[2023-06-26 12:03] VITALS: BMI 30.7
[2023-06-26 12:04] VITALS: BP 153/93; PULSE 72; RESP 20; TEMP 36.6; O2SAT 98
[2023-06-26] MEDS: LACTATED RINGERS 1,000 ML 150 ML IV CONT (12:12)
--- NOTE | 2023-06-26 12:14 | PM.HPGS ---
History of Present Illness History of Present Illness Consent: Risks, benefits, and alternatives have been discussed and questions answered. Patient agrees to proceed with procedure. Chief complaint: GERD without esophagitis Narrative: Jigar Law is a 63 year old male who was known have a history of chronic acid reflux for which he takes Nexium. Occasionally he will have some episodes of regurgitation when lying down but this has diminished significantly since he began avoiding eating or drinking late in the day. His new problem which began about 6 weeks ago, is that he will get episodes of tightness in the lower substernal area Which arerandom. Rarely it can occur after meal but it is totally random. Will last at least 10 minutes but if he eats or swallows a piece of bread it seems to dissipate rather quickly. Review of Systems Review of Systems: All systems reviewed & are unremarkable except as noted in HPI and below PMFSH Past Medical History Medical History Abnormal EKG Anal skin tag Atrial fibrillation paroxysmal Depression GERD (gastroesophageal reflux disease) History of 2019 novel coronavirus disease (COVID-19) Hypertension Malaise Normal colonoscopy 2010 Palpitations Pneumonia due to 2019-nCoV Surgical History Surgical History Hx laparoscopic cholecystectomy 11/02/20 Family History Family History Father Hypertension Family history of malignant neoplasm of esophagus Patient's father is Mother Patient's mother is , Onset Age: 86 Heart disease Social History Social History Social History: Smoking status: Never smoker Second hand tobacco smoke exposure: No Alcohol intake: current Drinks per week: 5 Alcohol use details: SELTZER DRINKS Substance use: never Substance use type: does not use Lack of Transportation: No Lack of Food: Never True Current Housing: I Have Housing Concerned About Future Housing: No Difficulty Paying Gas/Electric Bills: No Difficulty Paying for Meds: No Currently Unemployed: No Education: Master's Degree or Higher Difficulty w/ Childcare or Family Care: No Living arrangements: with family Occupation/Education: occupation 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 Gender identity (if verbalized by the patient): Male Sexual Orientation (if Verbalized by the Patient): Straight or Heterosexual Spiritual care concerns: No Meds Home Medications and Allergies Home Medications Medication Instructions Recorded Confirmed Type buspirone 15 mg tablet 15 mg PO BID 08/01/19 06/26/23 History flaxseed oil 1,000 mg capsule 1,000 mg PO DAILY 08/01/19 06/21/23 History multivit with minerals-iron 18 1 tablet PO DAILY 08/01/19 06/21/23 History mg-folic ac 400 mcg-vit K 25 mcg tablet (Adults Multivitamin) ascorbate calcium (vitamin C) 500 500 mg PO DAILY 09/13/19 06/21/23 History mg capsule clonazepam 1 mg tablet 1 mg PO BID 10/27/20 06/26/23 History Nexium 20 mg BYMOUTH BID 08/16/21 06/21/23 History apixaban 5 mg tablet (Eliquis) 5 mg PO BID #60 tabs 06/09/23 06/26/23 Rx Magnesium Taurate 200 mg PO DAILY 06/21/23 06/21/23 History metoprolol succinate 50 mg 25 mg PO DAILY 06/21/23 06/21/23 History tablet,extended release 24 hr olmesartan 40 1 tablet PO DAILY 06/21/23 06/21/23 History mg-hydrochlorothiazide 12.5 mg tablet fluoxetine 10 mg capsule 10 mg PO DAILY #30 caps 06/23/23 06/26/23 Rx naltrexone 8 mg-bupropion 90 mg See Rx Instructions .Route 06/23/23 Rx tablet,extended release (Contrave) .COMPLEX #120 tabs Allergies Allergy/AdvReac Type Severity Reaction Status Date / Time fish derived Allergy Severe ANAPHYLAXIS; Verified 06/26/23 12:00 DIFF
--- NOTE | 2023-06-26 12:21 | WPDANESEPPF ---
Anes - Initial Pre Proc Eval Procedure: Operation Date: 06/26/23 13:00 Proposed Procedures p Esophagogastroduodenoscopy - Meng Nagy MD Date/Time: 06/26/23 12:21 Surgeon: Meng Nagy MD Pre Op Diagnosis: GERD without esophagitis Patient Data Age: 63 Gender: M Height: 1.83 m Weight: 102.6 kg Last Vital Signs Temp 97.9 F 06/26/23 12:04 Pulse 72 06/26/23 12:04 Resp 20 06/26/23 12:04 BP 153/93 H 06/26/23 12:04 Pulse Ox 98 06/26/23 12:04 O2 Del Method Room Air 06/26/23 12:04 Allergies Allergy/AdvReac Type Severity Reaction Status Date / Time fish derived Allergy Severe ANAPHYLAXIS; Verified 06/26/23 12:00 DIFFICULTY BREATHING, THROAT SWELLING levofloxacin Allergy Severe Anaphylaxis Verified 06/26/23 12:00 Penicillins Allergy Severe Anaphylaxis Verified 06/26/23 12:00 shellfish derived Allergy Severe ANAPHYLAXIS; Verified 06/26/23 12:00 THROAT SWELLING Home Medications Medication Instructions Recorded Confirmed Type buspirone 15 mg tablet 15 mg PO BID 08/01/19 06/26/23 History flaxseed oil 1,000 mg capsule 1,000 mg PO DAILY 08/01/19 06/21/23 History multivit with minerals-iron 18 1 tablet PO DAILY 08/01/19 06/21/23 History mg-folic ac 400 mcg-vit K 25 mcg tablet (Adults Multivitamin) ascorbate calcium (vitamin C) 500 500 mg PO DAILY 09/13/19 06/21/23 History mg capsule clonazepam 1 mg tablet 1 mg PO BID 10/27/20 06/26/23 History Nexium 20 mg BYMOUTH BID 08/16/21 06/21/23 History apixaban 5 mg tablet (Eliquis) 5 mg PO BID #60 tabs 06/09/23 06/26/23 Rx Magnesium Taurate 200 mg PO DAILY 06/21/23 06/21/23 History metoprolol succinate 50 mg 25 mg PO DAILY 06/21/23 06/21/23 History tablet,extended release 24 hr olmesartan 40 1 tablet PO DAILY 06/21/23 06/21/23 History mg-hydrochlorothiazide 12.5 mg tablet fluoxetine 10 mg capsule 10 mg PO DAILY #30 caps 06/23/23 06/26/23 Rx naltrexone 8 mg-bupropion 90 mg See Rx Instructions .Route 06/23/23 Rx tablet,extended release (Contrave) .COMPLEX #120 tabs Patient hx anesthesia problems: none Family hx anesthesia problems: none Results Review: All pre-operative results and documents have been reviewed as part of the pre-operative evaluation. [facility] Past Medical History Medical History Abnormal EKG Anal skin tag Atrial fibrillation paroxysmal Depression GERD (gastroesophageal reflux disease) History of 2019 novel coronavirus disease (COVID-19) Hypertension Malaise Normal colonoscopy 2010 Palpitations Pneumonia due to 2019-nCoV Surgical History Surgical History Hx laparoscopic cholecystectomy 11/02/20 Family History Family History Father Hypertension Family history of malignant neoplasm of esophagus Patient's father is Mother Patient's mother is , Onset Age: 86 Heart disease Social History Social History Social History: Smoking status: Never smoker Second hand tobacco smoke exposure: No Alcohol intake: current Drinks per week: 5 Alcohol use details: SELTZER DRINKS Substance use: never Substance use type: does not use Lack of Transportation: No Lack of Food: Never True Current Housing: I Have Housing Concerned About Future Housing: No Difficulty Paying Gas/Electric Bills: No Difficulty Paying for Meds: No Currently Unemployed: No Education: Master's Degree or Higher Difficulty w/ Childcare or Family Care: No Living arrangements: with family Occupation/Education: occupation 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
[2023-06-26 12:35] VITALS: BP 113/80; PULSE 69; RESP 24; TEMP 36.6; O2SAT 94
[2023-06-26 12:45] VITALS: BP 134/94; PULSE 75; RESP 21; O2SAT 97
[2023-06-26 12:55] VITALS: BP 129/91; PULSE 67; RESP 21; O2SAT 97
== END 2023-06-26 13:00 | disposition home or self-care (01) ==
PROVIDERS: PCP Family Medicine; Visit Provider Internal Medicine Gastroenterology
PROC: 0DJ08ZZ Inspection of Upper Intestinal Tract, Via Natural or Artificial Opening Endoscopic (ICD-10-PCS; CPT 43235; principal; 2023-06-26 13:00)
DX: K21.00 Gastro-esophageal reflux disease with esophagitis, without bleeding (principal); I48.0 Paroxysmal atrial fibrillation; I10 Essential (primary) hypertension; F32.A Depression, unspecified; Z79.01 Long term (current) use of anticoagulants
CPT/HCPCS: 43239; 88305; J2001; J2704; J7120

== ENCOUNTER 2024-02-16 16:46 | Emergency (ER) | payer BC, SELFPAY ==
--- NOTE | ~2024-02-16 | XR_ITS ---
XR tibia fibula RT 2V Ordering provider: Constanza Encinas APRN History: . pain to blas x 1 week . Comparison: None. FINDINGS: BONES: No acute fracture or dislocation. JOINT SPACES: Normal. SOFT TISSUES: Normal. IMPRESSION: No acute osseous abnormality right leg. Reviewed, dictated and finalized at location A.
[2024-02-16 16:57] VITALS: BP 123/79; PULSE 76; RESP 15; TEMP 36.6; O2SAT 98
--- NOTE | 2024-02-16 16:58 | ED.EXTPRO ---
HPI - Extremity Problem General Chief complaint: Extremity Problem,Nontraumatic Stated complaint: rt leg/ankle swelling Time Seen by Provider: 02/16/24 17:08 Source: patient Mode of arrival: ambulatory Limitations: no limitations History of Present Illness HPI Narrative: 63 y/o male presented for c/o right leg pain and swelling since injury one week ago. States he was struck by a softball to the right blas and developed a hematoma. Since then he has had some bruising and swelling to the lower leg. Last night noticed purple discoloration to inner heel. Pain to blas kept him up in the night, rates 03/06. Has not taken anything for pain. Has been applying ice and keeping it elevated. Denies difficulty ambulating. Taking Eliquis for hx Afib. Related Data Home Medications Medication Instructions Recorded Confirmed buspirone 15 mg tablet 15 mg PO BID 08/01/19 02/16/24 flaxseed oil 1,000 mg capsule 1,000 mg PO DAILY 08/01/19 02/16/24 multivit with minerals-iron 18 1 tablet PO DAILY 08/01/19 02/16/24 mg-folic ac 400 mcg-vit K 25 mcg tablet (Adults Multivitamin) ascorbate calcium (vitamin C) 500 500 mg PO DAILY 09/13/19 02/16/24 mg capsule clonazepam 1 mg tablet 1 mg PO BID 10/27/20 02/16/24 Nexium 20 mg BYMOUTH BID 08/16/21 02/16/24 Magnesium Taurate 200 mg PO DAILY 06/21/23 02/16/24 metoprolol succinate 50 mg 25 mg PO DAILY 06/21/23 02/16/24 tablet,extended release 24 hr testosterone cypionate 200 mg/mL 200 mg IM ONCE 01/26/24 02/16/24 intramuscular oil Allergies Allergy/AdvReac Type Severity Reaction Status Date / Time fish derived Allergy Severe ANAPHYLAXIS; Verified 02/16/24 17:02 DIFFICULTY BREATHING, THROAT SWELLING levofloxacin Allergy Severe Anaphylaxis Verified 02/16/24 17:02 Penicillins Allergy Severe Anaphylaxis Verified 02/16/24 17:02 shellfish derived Allergy Severe ANAPHYLAXIS; Verified 02/16/24 17:02 THROAT SWELLING Review of Systems Review of Systems: CONSTITUTIONAL: Denies body aches, fever, chills CARDIOVASCULAR: Denies chest pain, palpitations, or edema. RESPIRATORY: Denies cough or dyspnea. SKIN: Denies rash or wounds. MUSCULOSKELETAL: reports right lower leg pain and swellign NEUROLOGIC: Denies headache, numbness, tingling, or weakness. PSYCH: Denies depression or anxiety. All systems reviewed & are unremarkable except as noted in HPI and below PMFSH Past Medical History Medical History Abnormal EKG Anal skin tag Atrial fibrillation paroxysmal Depression GERD (gastroesophageal reflux disease) History of 2019 novel coronavirus disease (COVID-19) Hypertension Malaise Normal colonoscopy 2010 Palpitations Pneumonia due to 2019-nCoV Surgical History Surgical History Hx laparoscopic cholecystectomy 11/02/20 Family History Family History Father Hypertension Family history of malignant neoplasm of esophagus Patient's father is Mother Patient's mother is , Onset Age: 86 Heart disease Social History Social History Social History: Smoking status: Never smoker Second hand tobacco smoke exposure: No Alcohol intake: current Drinks per week: 5 Alcohol use details: SELTZER DRINKS Substance use: never Substance use type: does not use Lack of Transportation: No Lack of Food: Never True Current Housing: I Have Housing Concerned About Future Housing: No Difficulty Paying Gas/Electric Bills: No Difficulty Paying for Meds: No Currently Unemployed: No Education: Master's Degree or Higher Difficulty w/ Childcare or Family Care: No Living arrangements: with family Occupation/Education: occupation 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
== END 2024-02-16 17:50 | disposition home or self-care (01) ==
PROVIDERS: Emergency Provider Nurse Practitioner Family; PCP Family Medicine
DX: S80.11XA Contusion of right lower leg, initial encounter (principal); W21.07XA Struck by softball, initial encounter; I48.0 Paroxysmal atrial fibrillation; K21.9 Gastro-esophageal reflux disease without esophagitis; I10 Essential (primary) hypertension; F32.A Depression, unspecified; Z79.01 Long term (current) use of anticoagulants
CPT/HCPCS: 73590; 99213; G0463

== ENCOUNTER 2024-02-26 10:18 | Emergency (ER) | payer BC, SELFPAY ==
--- NOTE | ~2024-02-26 | CT_ITS ---
EXAMINATION: CT cervical spine wo con DATE: 02/26/2024 11:16 INDICATION: Head injury. TECHNIQUE: Computed tomography (CT) of the cervical spine was performed without intravenous contrast. Automated exposure control and iterative reconstruction technique were employed. The dose-length pro duct was 473.45 mGy-cm. COMPARISON: CT cervical spine 11/27/2022 FINDINGS: Alignment is normal. Vertebral body heights are normal. There is severely decreased disc he ight at C5-C6 and C6-C7. The following disc levels are specifically discussed: C2-C3: There is mild bilateral uncovertebral joint osteoarthritis. There is severe bilateral facet unique int osteoarthritis. There is no neural foraminal stenosis. There is no central canal stenosis. C3-C4: There is mild bilateral uncovertebral joint osteoarthritis. There is moderate bilateral facet joint osteoarthritis. There is no neural foraminal stenosis. There is mild central canal stenosis. C4-C5: There is mild bilateral uncovertebral joint osteoarthritis. There is moderate bilateral facet joint osteoarthritis. There is no neural foraminal stenosis. There is mild central canal stenosis. C5-C6: There is moderate right and severe left uncovertebral joint osteoarthritis. There is severe ri ght and mild left facet joint osteoarthritis. There is mild right and moderate left neural foraminal stenosis. There is mild central canal stenosis. C6-C7: There is severe bilateral uncovertebral joint osteoarthritis. There is severe bilateral facet joint osteoarthritis. There is mild bilateral neural foraminal stenosis. There is mild central canal stenosis. C7-T1: There is no uncovertebral joint osteoarthritis. There is severe bilateral facet joint osteoart hritis. There is no neural foraminal stenosis. There is no central canal stenosis. IMPRESSION: 1. No fracture. 2. Severe cervical spondylosis. Reviewed, dictated and finalized at location A.
--- NOTE | ~2024-02-26 | CT_ITS ---
EXAMINATION: CT brain wo con DATE: 02/26/2024 11:16 INDICATION: Head injury. TECHNIQUE: Computed tomography (CT) of the head was performed without intravenous contrast. The mA wa s adjusted according to patient size. Iterative reconstruction technique was employed. The dose-lengt h product was 681.00 mGy-cm. COMPARISON: Head CT 11/27/2022 FINDINGS: There is a small old infarct in left cerebellum. There is an old infarct in the left tax intern al capsule. There is no intracranial hemorrhage, acute infarction, or abnormal intracranial mass lesi on. The ventricles are normal in size. There are likely changes of left ocular lens replacement surge ry. There is a mucous retention cyst in left maxillary sinus. The mastoid air cells are normal. IMPRESSION: 1. 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 Reviewed, dictated and finalized at location A.
[2024-02-26 10:19] VITALS: BP 152/95; PULSE 65; RESP 14; TEMP 36.5
--- NOTE | 2024-02-26 11:29 | ED.GENADULT ---
HPI - General Adult General Chief complaint: Head Injury Stated complaint: head injury Time Seen by Provider: 02/26/24 10:42 History of Present Illness HPI narrative: This is a 63-year-old male with AFib on Eliquis and health-related anxiety presenting for head trauma. 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 No loss of consciousness. Several minutes after he started developed dizziness and nausea but did not seek care at that time. Over last 2 days he has continue to worry about his symptoms eventually presented to the ED for eval. Patient does not have any neurologic deficits, says he has had multiple concussions in the past. Related Data Home Medications Medication Instructions Recorded Confirmed buspirone 15 mg tablet 15 mg PO BID 08/01/19 02/16/24 flaxseed oil 1,000 mg capsule 1,000 mg PO DAILY 08/01/19 02/16/24 multivit with minerals-iron 18 1 tablet PO DAILY 08/01/19 02/16/24 mg-folic ac 400 mcg-vit K 25 mcg tablet (Adults Multivitamin) ascorbate calcium (vitamin C) 500 500 mg PO DAILY 09/13/19 02/16/24 mg capsule clonazepam 1 mg tablet 1 mg PO BID 10/27/20 02/16/24 Nexium 20 mg BYMOUTH BID 08/16/21 02/16/24 Magnesium Taurate 200 mg PO DAILY 06/21/23 02/16/24 metoprolol succinate 50 mg 25 mg PO DAILY 06/21/23 02/16/24 tablet,extended release 24 hr testosterone cypionate 200 mg/mL 200 mg IM ONCE 01/26/24 02/16/24 intramuscular oil Allergies Allergy/AdvReac Type Severity Reaction Status Date / Time fish derived Allergy Severe ANAPHYLAXIS; Verified 02/16/24 17:02 DIFFICULTY BREATHING, THROAT SWELLING levofloxacin Allergy Severe Anaphylaxis Verified 02/16/24 17:02 Penicillins Allergy Severe Anaphylaxis Verified 02/16/24 17:02 shellfish derived Allergy Severe ANAPHYLAXIS; Verified 02/16/24 17:02 THROAT SWELLING PMFSH Past Medical History Medical History Abnormal EKG Anal skin tag Atrial fibrillation paroxysmal Depression GERD (gastroesophageal reflux disease) History of 2019 novel coronavirus disease (COVID-19) Hypertension Malaise Normal colonoscopy 2010 Palpitations Pneumonia due to 2019-nCoV Surgical History Surgical History Hx laparoscopic cholecystectomy 11/02/20 Family History Family History Father Hypertension Family history of malignant neoplasm of esophagus Patient's father is Mother Patient's mother is , Onset Age: 86 Heart disease Social History Social History Social History: Smoking status: Never smoker Second hand tobacco smoke exposure: No Alcohol intake: current Drinks per week: 5 Alcohol use details: SELTZER DRINKS Substance use: never Substance use type: does not use Lack of Transportation: No Lack of Food: Never True Current Housing: I Have Housing Concerned About Future Housing: No Difficulty Paying Gas/Electric Bills: No Difficulty Paying for Meds: No Currently Unemployed: No Education: Master's Degree or Higher Difficulty w/ Childcare or Family Care: No Living arrangements: with family Occupation/Education: occupation 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 Head: atraumatic. EYES: EOMI, NOSE: Atraumatic NECK: Trachea midline RESPIRATORY: No increased rate of breathing CARDIOVASCULAR: RRR, ABDOMINAL: Non-distended MUSCULOSKELETAl: No obvious deformities NEURO: Alert. Cranial nerves 2-12 grossly intact. Sensation light touch, motor function cerebe
== END 2024-02-26 11:55 | disposition home or self-care (01) ==
PROVIDERS: Emergency Provider Emergency Medicine; PCP Family Medicine
DX: F41.1 Generalized anxiety disorder (principal); S06.0X0A Concussion without loss of consciousness, initial encounter; I10 Essential (primary) hypertension; I48.0 Paroxysmal atrial fibrillation; Z79.01 Long term (current) use of anticoagulants
CPT/HCPCS: 70450; 72125; 99284

== ENCOUNTER 2024-04-08 07:09 | Outpatient (CLI) | payer BC, SELFPAY ==
--- NOTE | ~2024-04-08 | XR_ITS ---
XR hip RT 2V w AP pelvis Ordering provider: Braeden Tsang MD History: . M25.551 - Pain in right hip, NKI . Comparison: None. FINDINGS: BONES: No acute fracture or dislocation. HIP JOINT SPACES: Normal. SACROILIAC JOINT SPACES/LUMBAR SPINE: The sacroiliac joint spaces are normal. Mild degenerative dumas es of the visualized lower lumbar spine. PUBIC SYMPHYSIS: Normal. SOFT TISSUES: Normal. IMPRESSION: No acute osseous abnormality pelvis and right hip. Reviewed, dictated and finalized at location A.
== END 2024-04-08 07:10 | disposition home or self-care (01) ==
PROVIDERS: PCP Family Medicine; Visit Provider Orthopaedic Surgery
DX: M25.551 Pain in right hip (principal)
CPT/HCPCS: 73502

== ENCOUNTER 2024-06-10 08:31 | Outpatient (CLI) | payer BC, SELFPAY ==
--- NOTE | 2024-06-10 08:39 | EST_ITS ---
Patient Info Name: Jigar Law Age: 63 years : 1960 Gender: Male Ht: 72 in Wt: 228 lbs BSA: 2.32 m2 HR: 68 bpm BP: 149 / 91 mmHg Heart Rhythm: Sinus Rhythm Exam Date: 06/10/2024 8:48 AM Exam Location: [facility] Patient Status: Outpatient Admit Date: 06/10/2024 Staff Ordering Physician: Partha Sosa DO Attending Provider: Partha Sosa DO Exercise Technologist: Mimi Alexis CT Exercise Physician: Partha Sosa DO Exam Type: CA stress test treadmill Study Info Indications R07.89 - Other chest pain A treadmill exercise stress test was performed. Summary 1. 1. Negative Manny exercise stress test for ischemic ST changes by ECG criteria. 2. 2. Good functional capacity, achieving 10 METs of workload. 3. 3. Baseline hypertension. 4. 4. Appropriate HR response to exercise. 5. 5. Appropriate HR recovery at 1 minute post exercise. 6. 6. No imaging with stress testing. 7. 7. Patient informed of the above results. Protocol: Manny Stress ECG Details Stage: REST Duration (min): 1 min : 9 sec Speed (mph): 0.0 Grade (%): 0 HR (bpm): 65 SBP (mmHg): 149 DBP (mmHg): 91 METS: --- Stage: REST Duration (min): 4 min : 25 sec Speed (mph): 0.0 Grade (%): 0 HR (bpm): 70 SBP (mmHg): 149 DBP (mmHg): 91 METS: --- Stage: STAGE 1 Duration (min): 1 min : 0 sec Speed (mph): 1.7 Grade (%): 10 HR (bpm): 87 SBP (mmHg): 149 DBP (mmHg): 91 METS: --- Stage: STAGE 1 Duration (min): 2 min : 0 sec Speed (mph): 1.7 Grade (%): 10 HR (bpm): 99 SBP (mmHg): 149 DBP (mmHg): 91 METS: --- Stage: STAGE 1 Duration (min): 3 min : 0 sec Speed (mph): 1.7 Grade (%): 10 HR (bpm): 91 SBP (mmHg): 180 DBP (mmHg): 90 METS: --- Stage: STAGE 2 Duration (min): 1 min : 0 sec Speed (mph): 2.5 Grade (%): 12 HR (bpm): 103 SBP (mmHg): 166 DBP (mmHg): 92 METS: --- Stage: STAGE 2 Duration (min): 2 min : 0 sec Speed (mph): 2.5 Grade (%): 12 HR (bpm): 110 SBP (mmHg): 157 DBP (mmHg): 104 METS: --- Stage: STAGE 2 Duration (min): 3 min : 0 sec Speed (mph): 2.5 Grade (%): 12 HR (bpm): 113 SBP (mmHg): 157 DBP (mmHg): 104 METS: --- Stage: STAGE 3 Duration (min): 1 min : 0 sec Speed (mph): 3.4 Grade (%): 14 HR (bpm): 119 SBP (mmHg): 187 DBP (mmHg): 108 METS: --- Stage: STAGE 3 Duration (min): 2 min : 0 sec Speed (mph): 3.4 Grade (%): 14 HR (bpm): 126 SBP (mmHg): 187 DBP (mmHg): 108 METS: --- Stage: STAGE 3 Duration (min): 3 min : 0 sec Speed (mph): 3.4 Grade (%): 14 HR (bpm): 132 SBP (mmHg): 194 DBP (mmHg): 91 METS: --- Stage: RECOVERY Duration (min): 0 min : 59 sec Speed (mph): 0.0 Grade (%): 0 HR (bpm): 121 SBP (mmHg): 194 DBP (mmHg): 91 METS: --- Stage: RECOVERY Duration (min): 1 min : 59 sec Speed (mph): 0.0 Grade (%): 0 HR (bpm): 98 SBP (mmHg): 194
== END 2024-06-10 08:32 | disposition home or self-care (01) ==
LOC: ANHCARD 08:32
PROVIDERS: PCP Family Medicine; Visit Provider Internal Medicine Cardiovascular Disease
DX: R07.9 Chest pain, unspecified (principal)
CPT/HCPCS: 93017

== ENCOUNTER 2024-09-27 01:22 | Day surgery (SDC) | payer BC, SELFPAY ==
[2024-09-20 15:35] VITALS: BMI 31.4
--- NOTE | 2024-09-20 15:59 | PC.NURSE ---
Spoke with PATIENT regarding medication ELIQUIS. PATIENT verbalizes understanding that the last dose is to be taken on 09/24/2024 and the Endoscopist will instruct them when to restart after the procedure.
--- OUTSIDE RECORDS SUMMARY | 2024-09-27 01:25 | XMS_ITS | Referral Summary ---
Author Organization [facility] Address [address] [place] [address] Care Team Providers Care Engineer Station Mainline Name Role Phone Machelle Pagan MD Primary Care Provider + Machelle Pagan MD Unavailable [phone] Source Comments [facility],non-owned Affiliates and Associated Physician Practices is amultiple site organization consisting of ambulatory clinics and hospital sitesin [place], [place], [place] and [place]. This disclosure is being madepursuant to the Care Everywhere program and may not contain all information available regarding this patient. Last updated 18.[facility] Allergies Active Allergy Reactions Criticality Noted Date Comments Levofloxacin 08/24/2017 Penicillins 08/24/2017 Medications * Be aware that medications may not be up to date on this document. Alwaysverify current medications with the patient. Medication Sig Dispensed Refills Start Date End Date Status busPIRone (BUSPAR) 15 MG tablet 15 mg 2 times daily 1 05/01/2019 Active clonazePAM (KLONOPIN) 1 MG tablet 1 mg 2 times daily 5 06/05/2019 Active olmesartan (BENICAR) 40 MG tablet once daily 3 04/05/2019 Active esomeprazole (NEXIUM) 20 MG capsule Take 20 mg by mouth 2 times daily Active MAGNESIUM PO Take 20 mg by mouth once daily Active metoprolol succinate XL 24hr (TOPROL XL) 50 MG tablet Take 50 mg by mouth 2 times daily 02/10/2020 Active GNP GARLIC EXTRACT PO Take 1,000 mg by mouth once daily Active Active Problems Problem Noted Date Diagnosed Date Anxiety 02/26/2020 GERD (gastroesophageal reflux disease) 0 Hiatal hernia 02/26/2020 APC (atrial premature contractions) 07/01/2019 PVCs (premature ventricular contractions) 2018 PAF (paroxysmal atrial fibrillation) 06/28/2019 HTN (hypertension) 06/28/2019 Social History Tobacco Use Types Packs/Day Years Used Date Smoking Tobacco: Never Smokeless Tobacco: Never Sex and Gender Information Value Date Recorded Sex Assigned at Not on file Gender Identity Not on file Sexual Orientation Not on file Last Filed Vital Signs Vital Sign Reading Time Taken Comments Blood Pressure 170/100 02/26/2020 2:17 PM CDT Pulse 69 02/26/2020 2:17 PM CDT Temperature 36.5 ??C (97.7 ??F) 09/06/2017 9:35 AM CS T Respiratory Rate 14 02/26/2020 2:17 PM CDT Oxygen Saturation 98% 09/06/2017 9:35 AM RADIO DIVISION CAPTAIN Inhaled Oxygen Concentration - - Weight 98.4 kg (217 lb) 02/26/2020 2:17 PM CDT Height 182.9 cm (6') 02/26/2020 2:17 PM CDT Body Mass Index 29.43 02/26/2020 2:17 PM CDT Plan of Treatment Not on file Care Teams Engineer Station Mainline Relationship Specialty Start Date End Date Machelle Pagan MD [address] [place] [address] PCP - General 11/03/20 Machelle Pagan MD [address] [place] [address] Family Medicine 11/03/20
--- OUTSIDE RECORDS SUMMARY | 2024-09-27 01:25 | XMS_ITS | Continuity of Care Document ---
Author Organization [facility] Address [address] [place] [address] Phone Care Team Providers Care Whipped Topping Finisher Name Role Phone No Information Unavailable Unavailable Advance Directives Directive Yes / No Effective Date File Name No Information Encounters Encounter Description Practice Location Reason(s) For Visit Diagnoses Date Provider Providers Copied on Encounter [facility] [address], [place], [place], [id number], [place] tel:[phone] No Information No Information Family History Family Member Type Diagnosis Age At Onset No Information Payers Payer name Insurance type Covered constitution party ID Authoriza tion(s) No Information Social History Type Description Quantity Date Captured Comments Sex Male Smoking Status No Information Chief Complaint And Reason For Visit No Information Reason For Referral Reason For Referral No Information History Of Present Illness Encounter Date Complaint History Of Prese nt Illness No Information Functional Status Date Functional Assessmen t No Information Instructions Date Instruction Additional Infor mation No Information Assessments Type Assessment Date No Information Patient Care Teams Name Effective Dates (start - stop) Status Members No Information
--- OUTSIDE RECORDS SUMMARY | 2024-09-27 01:25 | XMS_ITS | Clinical Summary ---
Author Organization [facility] [employer] Address [address] [place] [address] Care Team Providers Care Distribution Coordinator Name Role Phone Machelle Pagan MD Primary Care Provider + Machelle Pagan MD Unavailable [phone] Source Comments [facility],non-owned Affiliates and Associated Physician Practices is amultiple site organization consisting of ambulatory clinics and hospital sitesin [place], [place], [place] and [place]. This disclosure is being madepursuant to the Care Everywhere program and may not contain all information available regarding this patient. Last updated 18.[facility] Allergies Active Allergy Reactions Criticality Noted Date [...] (paroxysmal atrial fibrillation) 06/28/2019 HTN (hypertension) 06/28/2019 Family History Medical History Relation Name Comments Cancer - Esophageal Father Relation Name Status Comments Father Social History Tobacco Use Types Packs/Day Years [...] CDT Oxygen Saturation 98% 09/06/2017 9:35 AM REMOTE RECRUITER Inhaled Oxygen Concentration - - Weight 98.4 kg (217 lb) 02/26/2020 2:17 PM CDT Height 182.9 cm (6') 02/26/2020 2:17 PM CDT Body Mass Index 29.43 02/26/2020 2:17 PM CDT Plan of Treatment Health Maintenance Due Date Last Done Comments COLOGUARD (AGES 45-75) - COL ON CA SCREENING 1958 COLON MONITORING 1958 COLONOSCOPY - COLON CA SCREENING 1958 CT COLONOGRAPHY - COLON CA SCREENING 1958 Colorectal Cancer Screening 1958 FIT - COLON CA SCREENING 1958 FLEX SIG - COLON CA SCREENING 1958 LIPID TESTING 1958 HEPATITIS C SCREENING 06/09/1976 DTAP/TDAP/TD VACCINES (1 - Tdap) 1977 PNEUMOCOCCAL VACCINE 50+ (1 of 1 - PCV) 2008 ZOSTER VACCINE (1 of 2) 2008 SCREENING FOR DIABETES 07/01/2019 COVID-19 VACCINE (1 - 2023-2 5 season) 2024 INFLUENZA VACCINE (#1) 2024 DEPRESSION SCREENING 08/28/2024 Respiratory Syncytial Virus (RSV) Vaccine Pt: or over 60 yrs (1 - 1-dose 75+ series) 2033 HEPATITIS B VACCINE Aged Out No longe r eligible based on patient's age to complete this topic HIB VACCINE Aged Out No longer eligi ble based on patient's age to complete this topic HPV VACCINE Aged Out No longer eligi ble based on patient's age to complete this topic MENINGOCOCCAL (Group B) VACCINE Aged Out No longer eligible based on patient's age to complete this topic MENINGOCOCCAL VACCINE Aged Out No maria d millie eligible based on patient's age to complete this topic Care Teams Distribution Coordinator Relationship Specialty Start Date End Date Machelle Pagan MD [address] [place] [address] PCP - General 11/03/20 Machelle Pagan MD [address] [place] [address] Family Medicine 11/03/20
--- OUTSIDE RECORDS SUMMARY | 2024-09-27 01:25 | XMS_ITS | Patient Health Summary ---
Author Organization [facility] Address [address] [place] [address] Care Team Providers Care Jewelry Manager Name Role Phone Machelle Pagan MD Primary Care Provider + Machelle Pagan MD Unavailable [phone] Note from [facility],non-owned Affiliates and Associated Physician Practices is amultiple site organization consisting of ambulatory clinics and hospital sitesin [place], [place], [place] and [place]. This disclosure is being madepursuant to the Care Everywhere program and may not contain all information available regarding this patient. Last updated 18.[facility] Allergies * Levofloxacin * Penicillins Medications * Be aware that medications may not be up to date on this document. Alwaysverify current medications with the patient. * busPIRone (BUSPAR) 15 MG tablet(Started 05/01/2019) 15 mg 2 times daily 1 refill left * clonazePAM (KLONOPIN) 1 MG tablet(Started 06/05/2019) 1 mg 2 times daily 5 refills left * olmesartan (BENICAR) 40 MG tablet(Started 04/05/2019) once daily 3 refills left * esomeprazole (NEXIUM) 20 MG capsule Take 20 mg by mouth 2 times daily * MAGNESIUM PO Take 20 mg by mouth once daily * metoprolol succinate XL 24hr (TOPROL XL) 50 MG tablet(Started 02/10/2020) Take 50 mg by mouth 2 times daily * GNP GARLIC EXTRACT PO Take 1,000 mg by mouth once daily Active Problems Problem Noted Date Diagnosed Date [...] CDT Oxygen Saturation 98% 09/06/2017 9:35 AM MALWARE ANALYST Inhaled Oxygen Concentration - - Weight 98.4 kg (217 lb) 02/26/2020 2:17 PM CDT Height 182.9 cm (6') 02/26/2020 2:17 PM CDT Body Mass Index 29.43 02/26/2020 2:17 PM CDT Procedures * DERMATOPATHOLOGY(Performed 10/11/2022) Performed for Melanocytic nevi of scalp and neck, Neoplasm of uncertain behavior of skin * EKG 12-LEAD(Performed 02/26/2020) Performed for PAF (paroxysmal atrial fibrillation) (HCC), APC (atrial premature contractions), PVCs(premature ventricular contractions) * ECHO COMPLETE(Performed 02/05/2020) * STRESS TEST EXERCISE(Performed 02/05/2020) * HOLTER MONITOR(Performed 11/13/2019) * HOLTER MONITOR(Performed 07/31/2019) Performed for PAF (paroxysmal atrial fibrillation) (HCC) * EKG 12-LEAD(Performed 07/31/2019) Performed for PAF (paroxysmal atrial fibrillation) (HCC), APC (atrial premature contractions), PVCs(premature ventricular contractions) * EKG 12-LEAD(Performed 07/01/2019) Performed for PAF (paroxysmal atrial fibrillation) (HCC) * EKG 12-LEAD(Performed 04/18/2019) * ECHO COMPLETE(Performed 04/10/2019) Results * DERMATOPATHOLOGY (10/11/2022 12:00 AM MALWARE ANALYST) Case Report Dermatopathology Report ? Case: [id number] ? Authorizing Provider: ??Shannon Newell, ?? Collected: ? 10/11/2022 12:00 AM ? NELLY-C ? Ordering Location: ? [facility] ?Received: ?10/12/2022 02:18 PM ? Pathologist: ? Ana Anderson MD ? Specimens: ?? A) - Skin, occipital scalp ? B) - Skin, left lower back ? 3 3:42 PM [facility] Final Diagnosis Specimen A. SKIN, occipital scalp: INTRADERMAL MELANOCYTIC NEVUS (D22.4) Specimen B. SKIN, left lower back: LENTIGINOUS MELANOCYTIC NEVUS, COMPOUND TYPE, IRRITATED (D22.5) 3 3:42 PM [facility] Clinical History A: Irritated Nevus B: Atypical Nevus 3 3:42 PM [facility] Gross Description Specimen A: Received is one formalin filled container labeled with the patient's name and designated occipital scalp. The specimen consists of a shave biopsy measuring 8x8x2 mm. Jar 0. Specimen B: Received is one formalin filled container labeled with the patient's name and designated left lower back. The specimen consists of a shave biopsy measuring 9x5x1 mm. Jar 0. 3 3:42 PM [facility] Microscopic Description Specimen A. SKIN, occipital scalp: There are nests of cytologically bland melanocytes within the dermis that mature with depth. Specimen B. SKIN, left lower back: This is a compound nevus. There is melanin pigment within the stratum corneum. There is a lentiginous proliferation of melanocytes between nests of cells along the dermal-epidermal junction, highlighted by MART-1/Melan-A immunohistochemical staining. There is underlying fibroplasia of the papillary dermis. The intradermal component is bland appearance and matures with depth. (Compound Mahesh's Nevus) 3 3:42 PM [facility] Disclaimer An external and internal positive and negative controls are appropriate for the histochemical, immunohistochemical and immunofluorescence stain(s) in this case (if any), except where stated explicitly. The performance characteristics of the stain(s) cited in this report were developed and its performance characteristic determined by the Dermatopathology Laboratory at [facility], directed by Dr. Waldo Stevenson. These tests need not be, and therefore are not, approved by the [place] Food and Drug Administration. The tests are used for clinical purposes. Billing Codes Specimen Charges Stain Charges 87066 94103 1 1 86209 1 3 3:42 PM MALWARE ANALYST DERMATOPATHOLOGY LABORATORY Embedded Images 3 3:42 PM MALWARE ANALYST DERMATOPATHOLOGY LABORATORY Pathology/Cytology TISSUE SPECIMEN FROM SKIN / Unknown 10/11/2022 10/12/2022 2:18 PM MALWARE ANALYST Miscellaneous samples (specimen) TISSUE SPECIMEN FROM SKIN / Unknown 10/11/2022 10/12/2022 2:18 PM MALWARE ANALYST Shannon Newell PA-C LAB - PATHOL OGY/CYTOLOGY ORDERABLES DERMATOPATHOLOGY LABORATORY [facility] - Department of Dermatology [address], [address] [phone] * EKG 12-LEAD (02/26/2020 1:57 PM CDT) Only the most recent of4 resultswithin the time period is included. Narrative Mayte Stroud - 02/26/2020 1:57 PM CDT Kortney Souza ? 02/26/2020 ??1:57 PM See scan Procedure Note Kortney Souza - 02/26/2020 1:57 PM CDT See scan Yesika Leung PLACER [employer]EST FI[employer] MANAGEMENT OFFICER ECG ORDERAB LES * ECHO COMPLETE (02/05/2020) Only the most recent of2 resultswithin the time period is included. Historical Provider MD ECHO ORDERABLES * STRESS TEST EXERCISE (02/05/2020) Historical Provider CARDIAC SERVICES ORDERABLES * HOLTER MONITOR (11/13/2019) Only the most recent of2 resultswithin the time period is included. Historical Provider CARDIAC SERVICES ORDERABLES Care Teams Jewelry Manager Relationship Specialty Start Date End Date Machelle Pagan MD [address] [place] [id number] PCP - General 11/03/20 Machelle Pagan MD [address] [place] [address] Family Medicine 11/03/20
--- OUTSIDE RECORDS SUMMARY | 2024-09-27 01:25 | XMS_ITS | Clinical Summary ---
Author Organization [facility] [address] Address [address] [place] [address] Care Team Providers Care Educational Psychology Professor Name Role Phone Krystyna Sabillon Amanda ZEPEDA Primary Care Provider + Allergies Active Allergy Reactions Criticality Noted Date Comments Levofloxacin Unknown 04/29/2020 Penicillins Unknown 04/29/2020 Medications metoprolol XL (TOPROL-XL) 25 mg extended release tablet TK 1 T PO BID 02/24/2020 Active olmesartan (BENICAR) 40 mg tablet TK 1 T PO D 04/26/2020 Active busPIRone (BUSPAR) 15 mg tablet TK 1 T PO BID 02/03/2020 Active clonazePAM (KlonoPIN) 1 mg tablet TK 1 T PO TID 03/20/2020 Active sertraline (ZOLOFT) 50 mg tablet 04/15/[address] (NexIUM) 20 mg capsule Take 1 capsule (20 mg total) by mouth 2 (two) times a day Active Eliquis 5 mg tablet Take 1 tablet (5 mg total) by mouth 2 (two) times a day 12/08/2023 Active Active Problems No known active problems Social History Tobacco Use Types Packs/Day Years Used Date Smoking Tobacco: Never Smokeless Tobacco: Never Tobacco Cessation:Counseling Given: Not Answered Alcohol Use Standard Drinks/Week Comments Yes 3 (1 standard drink = 0.6 oz pur e alcohol) Personal Safety Answer Date Recorded Getting School Help Needed Not on file 08/14 Sex and Gender Information Value Date Recorded Sex Assigned at Not on file 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 Gender Identity Not on file Sexual Orientation Not on file Obstetrics History Last Filed Vital Signs Vital Sign Reading Time Taken Comments Blood Pressure 142/99 01/09/2024 9:09 AM CDT Pulse 63 01/09/2024 9:07 AM CDT Temperature - - Respiratory Rate - - Oxygen Saturation 99% 01/09/2024 9:07 AM CDT Inhaled Oxygen Concentration - - Weight 104.2 kg (229 lb 12.8 oz) 01/09/2024 9:07 AM CDT Height 182.9 cm (6') 01/09/2024 9:07 AM CDT Body Mass Index 31.17 01/09/2024 9:07 AM CDT Plan of Treatment Health Maintenance Due Date Last Done Comments Colon Cancer Screening-Colonoscopy 1958 Depression Screening 1958 Fall Risk Assessment 1958 Hepatitis C Screening 1958 Prostate Cancer Screening-PSA 1958 DTaP/Tdap/Td Vaccine (1 - Tdap) 1969 Hepatitis B Screening 1976 Pneumococcal vaccine 65+ (1 of 1 - PCV) 2023 Well Visit 65+ 2023 Influenza Vaccine (#1) 2024 9, 05/15/2018, 05/22/2017, Additional history exists Zoster Vaccine Completed 10/29/2019, 06/03/2019 Insurance [facility] Care Teams Educational Psychology Professor Relationship Specialty Start Date End Date Krystyna Sabillon NP [address] [facility] [facility] [address], [place] [address] PCP - General Nurse Practitioner 04/18/18
--- OUTSIDE RECORDS SUMMARY | 2024-09-27 01:25 | XMS_ITS | Referral Summary ---
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
[2024-09-27 07:17] VITALS: BP 137/85; PULSE 58; RESP 20; TEMP 36.1; O2SAT 99; BMI 31.2
[2024-09-27] MEDS: LACTATED RINGERS 1,000 ML 150 ML IV CONT (07:29)
--- NOTE | 2024-09-27 07:50 | P.PNAN_ITS ---
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 Patient Data Age: 64 Gender: M Height: 1.83 m Weight: 104.6 kg Last Vital Signs Temp 36.1 C L 09/27/24 07:17 Pulse 58 L 09/27/24 07:17 Resp 20 09/27/24 07:17 BP 137/85 09/27/24 07:17 Pulse Ox 99 09/27/24 07:17 O2 Del Method Room Air 09/27/24 07:17 Allergies Allergy/AdvReac Type Severity Reaction Status Date / Time fish derived Allergy Severe ANAPHYLAXIS; Verified 09/27/24 07:14 DIFFICULTY BREATHING, THROAT SWELLING levofloxacin Allergy Severe Anaphylaxis Verified 09/27/24 07:14 Penicillins Allergy Severe Anaphylaxis Verified 09/27/24 07:14 shellfish derived Allergy Severe ANAPHYLAXIS; Verified 09/27/24 07:14 THROAT SWELLING Home Medications ?Medication ?Instructions ?Recorded ?Confirmed ?Type buspirone 15 mg tablet 15 mg PO BID 08/01/19 09/27/24 History flaxseed oil 1,000 mg capsule 1,000 mg PO DAILY 08/01/19 09/27/24 History multivit with minerals-iron 18 1 tablet PO DAILY 08/01/19 09/27/24 History mg-folic ac 400 mcg-vit K 25 mcg tablet (Adults Multivitamin) ascorbate calcium (vitamin C) 500 500 mg PO DAILY 09/13/19 09/27/24 History mg capsule clonazepam 1 mg tablet 1 mg PO BID 10/27/20 09/20/24 History Magnesium Taurate 200 mg PO DAILY 06/21/23 09/27/24 History testosterone cypionate 200 mg/mL 200 mg IM ONCE 01/26/24 09/20/24 History intramuscular oil apixaban 5 mg tablet (Eliquis) See Rx Instructions .Route 08/14/24 09/27/24 Rx .COMPLEX #60 tabs olmesartan 40 See Rx Instructions .Route 08/22/24 09/27/24 Rx mg-hydrochlorothiazide 12.5 mg .COMPLEX #90 tabs tablet esomeprazole magnesium 40 mg 40 mg PO BID 3 months #180 caps 09/12/24 09/27/24 Rx capsule,delayed release (Nexium) clonazepam 0.5 mg tablet 0.5 mg PO BID 09/20/24 09/27/24 History metoprolol succinate 50 mg 75 mg PO DAILY 09/20/24 09/27/24 History tablet,extended release 24 hr testosterone enanthate 75 mg/0.5 75 mg subcut WEEKLY 09/20/24 09/20/24 History mL subcutaneous auto-injector (Xyosted) Patient hx anesthesia problems: none Family hx anesthesia problems: none Results Review: All pre-operative results and documents have been reviewed as part of the pre- operative evaluation. [facility] Past Medical History Medical History Hiatal hernia Esophageal pain Palpitations Abnormal EKG Anal skin tag Normal colonoscopy 2010 History of 2019 novel coronavirus disease (COVID-19) Malaise Pneumonia due to 2019-nCoV Depression GERD (gastroesophageal reflux disease) Hypertension Atrial fibrillation paroxysmal Surgical History Surgical History H/O cardiac radiofrequency ablation Hx laparoscopic cholecystectomy 11/02/20 Family History Family History Father Hypertension Family history of malignant neoplasm of esophagus Patient's father is Mother Patient's mother is , Onset Age: 86 Heart disease Social History Social History Social History: Smoking status: Never smoker Second hand tobacco smoke exposure: No Alcohol intake: current Drinks per week: 5 Alcohol use details: SELTZER DRINKS Substance use: never Substance use type: does not use Do You Feel Safe in your Home?: Yes Lack of Transportation: No Lack of Food: Never True Current Housing: I Have Housing Concerned About Future Housing: No Difficulty Paying Gas/Electric Bills: No Difficulty Paying for Meds: No Currently Unemployed: No Education: Master's Degree or Higher Difficulty w/ Childcare or Family Care: No Living arrangements: alone Occupation/Education: occupation 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 Gender identity (if verbalized by the patient): Male Sexual Orientation (if Verbalized by the Patient): Straight or Heterosexual Spiritual care concerns: No Anes - Eval Final PreProcedure Day of Procedure 09/27/24 07:50 Patient weight: obese Heart: regular rate and rhythm Lungs: clear to auscultation Airway: Mallampati scale class II Neurological: alert and oriented Last oral intake: >/= 8 hours ASA classification: III Emergent: no Anesthetic plan: proceed Anesthesia type and monitoring: general GIVS and standard monitoring Results Review: All pre-operative results and documents have been reviewed as part of the pre- operative evaluation. Informed Consent: The patient's anesthetic plan and its attendant risks and benefits were discussed with the patient/family/POA. Questions were solicited and answers provided to the satisfaction of the patient/family/POA.
--- NOTE | 2024-09-27 08:12 | P.HP_ITS ---
History of Present Illness History of Present Illness Consent: Risks, benefits, and alternatives have been discussed and questions answered. Patient agrees to proceed with procedure. Chief complaint: GERD, diaphragmatic hernia w/o obst Narrative: Jigar Law is a 64 year old male with gerd on nexium, recently more discomfort, also had AMARILYS with cardiac ablation. father with esophageal cancer. Last EGD 2022 with mild esophagitis. Review of Systems Review of Systems: All systems reviewed & are unremarkable except as noted in HPI and below PMFSH Past Medical History Medical History (Updated 09/27/24 @ 08:14 by Manolo Prajapati MD) Family history of esophageal cancer Hiatal hernia Esophageal pain Palpitations Abnormal EKG Anal skin tag Normal colonoscopy 2010 History of 2019 novel coronavirus disease (COVID-19) Malaise Pneumonia due to 2019-nCoV Depression GERD (gastroesophageal reflux disease) Hypertension Atrial fibrillation paroxysmal Surgical History Surgical History H/O cardiac radiofrequency ablation Hx laparoscopic cholecystectomy 11/02/20 Family History Family History Father Hypertension Family history of malignant neoplasm of esophagus Patient's father is Mother Patient's mother is , Onset Age: 86 Heart disease Social History Social History Social History: Smoking status: Never smoker Second hand tobacco smoke exposure: No Alcohol intake: current Drinks per week: 5 Alcohol use details: SELTZER DRINKS Substance use: never Substance use type: does not use Do You Feel Safe in your Home?: Yes Lack of Transportation: No Lack of Food: Never True Current Housing: I Have Housing Concerned About Future Housing: No Difficulty Paying Gas/Electric Bills: No Difficulty Paying for Meds: No Currently Unemployed: No Education: Master's Degree or Higher Difficulty w/ Childcare or Family Care: No Living arrangements: alone Occupation/Education: occupation 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 Gender identity (if verbalized by the patient): Male Sexual Orientation (if Verbalized by the Patient): Straight or Heterosexual Spiritual care concerns: No Meds Home Medications and Allergies Home Medications ?Medication ?Instructions ?Recorded ?Confirmed ?Type buspirone 15 mg tablet 15 mg PO BID 08/01/19 09/27/24 History flaxseed oil 1,000 mg capsule 1,000 mg PO DAILY 08/01/19 09/27/24 History multivit with minerals-iron 18 1 tablet PO DAILY 08/01/19 09/27/24 History mg-folic ac 400 mcg-vit K 25 mcg tablet (Adults Multivitamin) ascorbate calcium (vitamin C) 500 500 mg PO DAILY 09/13/19 09/27/24 History mg capsule clonazepam 1 mg tablet 1 mg PO BID 10/27/20 09/20/24 History Magnesium Taurate 200 mg PO DAILY 06/21/23 09/27/24 History testosterone cypionate 200 mg/mL 200 mg IM ONCE 01/26/24 09/20/24 History intramuscular oil apixaban 5 mg tablet (Eliquis) See Rx Instructions .Route 08/14/24 09/27/24 Rx .COMPLEX #60 tabs olmesartan 40 See Rx Instructions .Route 08/22/24 09/27/24 Rx mg-hydrochlorothiazide 12.5 mg .COMPLEX #90 tabs tablet esomeprazole magnesium 40 mg 40 mg PO BID 3 months #180 caps 09/12/24 09/27/24 Rx capsule,delayed release (Nexium) clonazepam 0.5 mg tablet 0.5 mg PO BID 09/20/24 09/27/24 History metoprolol succinate 50 mg 75 mg PO DAILY 09/20/24 09/27/24 History tablet,extended release 24 hr testosterone enanthate 75 mg/0.5 75 mg subcut WEEKLY 09/20/24 09/20/24 History mL subcutaneous auto-injector (Xyosted) Allergies Allergy/AdvReac Type Severity Reaction Status Date / Time fish derived Allergy Severe ANAPHYLAXIS; Verified 09/27/24 07:14 DIFFICULTY BREATHING, THROAT SWELLING levofloxacin Allergy Severe Anaphylaxis Verified 09/27/24 07:14 Penicillins Allergy Severe Anaphylaxis Verified 09/27/24 07:14 shellfish derived Allergy Severe ANAPHYLAXIS; Verified 09/27/24 07:14 THROAT SWELLING Vital Signs Vital Signs - 24 hr 09/27/24 07:17 Temperature 97 F L Pulse Rate 58 L Respiratory Rate 20 Blood Pressure 137/85 Pulse Oximetry 99 Oxygen Delivery Room Air Exam Const: General: comfortable and no acute distress HENMT: Face/Nose/Sinus: Normal nares present Eyes: General: appearance normal, both eyes and all related structures Neck: Neck: no JVD Resp: Auscultation: clear to auscultation bilaterally Cardio: Rate: regular rate Rhythm: regular rhythm GI: Inspection: non-distended GI Palp: Yes Soft to palpation Skin: General skin exam: normal color Neuro: Speech: normal speech Extrem: General: normal to inspection Psych: Mental Status: mental status grossly normal Assessment and Plan Assessment and plan (1) GERD (gastroesophageal reflux disease): Code(s): K21.9 - Gastro-esophageal reflux disease without esophagitis Status: Acute Assessment and Plan: egd with bx on ppi (2) Family history of esophageal cancer: Code(s): Z80.0 - Family history of malignant neoplasm of digestive organs Status: Acute
[2024-09-27 08:31] VITALS: BP 100/69; PULSE 66; RESP 21; O2SAT 97
[2024-09-27 08:41] VITALS: BP 113/68; PULSE 68; RESP 20; O2SAT 97
[2024-09-27 08:51] VITALS: BP 109/72; PULSE 60; RESP 20; O2SAT 95
== END 2024-09-27 09:00 | disposition home or self-care (01) ==
PROVIDERS: PCP Family Medicine; Visit Provider Internal Medicine Gastroenterology
PROC: 0DJ08ZZ Inspection of Upper Intestinal Tract, Via Natural or Artificial Opening Endoscopic (ICD-10-PCS; CPT 43239; principal; 2024-09-27 15:00)
DX: K21.9 Gastro-esophageal reflux disease without esophagitis (principal); K44.9 Diaphragmatic hernia without obstruction or gangrene; K63.5 Polyp of colon; I10 Essential (primary) hypertension; I48.0 Paroxysmal atrial fibrillation; F32.A Depression, unspecified; E66.9 Obesity, unspecified; Z68.31 Body mass index [BMI] 31.0-31.9, adult; Z79.01 Long term (current) use of anticoagulants; Z98.890 Other specified postprocedural states; Z90.49 Acquired absence of other specified parts of digestive tract; Z86.79 Personal history of other diseases of the circulatory system; Z80.0 Family history of malignant neoplasm of digestive organs; Z82.49 Family history of ischemic heart disease and other diseases of the circulatory system
CPT/HCPCS: 43239; 43251; 88305; J2003; J2704; J7120